=== PATIENT | female | born 1940 | race Caucasian/White ===

== ENCOUNTER → 2018-09-21 | Outpatient (CLI) | payer MEDICARE, BC ==
[2018-09-21 11:23] LABS: Prothrombin Time 49.5 sec (9.0-12.0)
[2018-09-21 11:35] LABS: INR 5.5 (<1.2)
== END | disposition home or self-care (01) ==
LOC: LABWHC1 10:32
PROVIDERS: ATTEND Nurse Practitioner Adult Health
DX: I48.1 Persistent atrial fibrillation (principal)
CPT/HCPCS: 36415; 85610

== ENCOUNTER → 2018-11-21 | Outpatient (CLI) | payer MEDICARE, BC ==
--- NOTE | 2018-11-23 07:04 | MM ---
Reason for exam: screening (asymptomatic). Last mammogram was performed 2 years and 11 months ago. History: Patient is postmenopausal. Family history of breast cancer in aunt at age 40. Took estrogen for 1 year beginning at age 53. Took unspecified hormones for 20 years beginning at age 46. MG 3D Screening Mammo W/Cad Bilateral CC and MLO view(s) were taken. Prior study comparison: December 07, 2015, left breast MG 3d work up w/cad LT. November 27, 2015, bilateral MG screening mammo w CAD. The breast tissue is heterogeneously dense. This may lower the sensitivity of mammography. There is a new group of calcifications in the right upper outer quadrant at the posterior depth. The calcifications in the left breast are similar to 2016. ASSESSMENT: Incomplete: need additional imaging evaluation, BI-RAD 0 RECOMMENDATION: Special view mammogram of the right breast.
== END | disposition home or self-care (01) ==
LOC: RADMAMWWP 13:16
PROVIDERS: ATTEND Obstetrics & Gynecology Obstetrics
DX: Z12.31 Encounter for screening mammogram for malignant neoplasm of breast (principal)
CPT/HCPCS: 77063; 77067

== ENCOUNTER → 2019-01-07 | Outpatient (CLI) | payer MEDICARE, BC ==
--- NOTE | 2019-01-08 08:17 | MM ---
Reason for exam: additional evaluation requested from abnormal screening. Last mammogram was performed 2 months ago. History: Patient is postmenopausal. Family history of breast cancer in aunt at age 40. Took estrogen for 1 year beginning at age 53. Took unspecified hormones for 20 years beginning at age 46. Physical Findings: Nurse did not find any significant physical abnormalities on exam. MG 3D Work Up W/Cad RT CC with magnification, LM with magnification, and LM view(s) were taken of the right breast. Prior study comparison: November 21, 2018, bilateral MG 3d screening mammo w/cad. December 07, 2015, left breast MG 3d work up w/cad LT. The breast tissue is heterogeneously dense. This may lower the sensitivity of mammography. There is a 4mm group of coarse heterogeneous calcifications in the right upper outer quadrant 8cm from nipple. These results were verbally communicated with the patient and result sheet given to the patient on 01/07/19. ASSESSMENT: Suspicious, BI-RAD 4 RECOMMENDATION: Stereotactic core biopsy of the right breast. Called Dr. Hill with mammographic findings and has scheduled an appointment for the patient for 02/07/19 at 9:[address] Greene. Biopsy scheduled for 01/24/19 at 10:20. PRELIMINARY REPORT CALLED AND FAXED TO DR. GREENE ON 01/08/19.
== END | disposition home or self-care (01) ==
LOC: RADMAMWWP 14:31
PROVIDERS: ATTEND Obstetrics & Gynecology Obstetrics
DX: R92.8 Other abnormal and inconclusive findings on diagnostic imaging of breast (principal)
CPT/HCPCS: 77065; G0279; 77061

== ENCOUNTER → 2019-11-13 | Outpatient (CLI) | payer MEDICARE, BC ==
--- NOTE | 2019-11-13 09:35 | MM ---
Reason for exam: follow-up at short interval from prior study. Last mammogram was performed 10 months ago. History: Patient is postmenopausal. Family history of breast cancer in aunt at age 40. Benign MG stereo VAD BX RT of the right breast, January 24, 2019. Took estrogen for 1 year beginning at age 53. Physical Findings: Nurse did not find any significant physical abnormalities on exam. MG 3D Diag Mammo W/Cad SHERWIN Bilateral CC and MLO view(s) were taken. Prior study comparison: January 07, 2019, right breast MG 3d work up w/cad RT. November 21, 2018, bilateral MG 3d screening mammo w/cad. The breast tissue is heterogeneously dense. This may lower the sensitivity of mammography. Previous mammotome biopsy in the right breast. No significant new findings when compared with previous films. These results were verbally communicated with the patient and result sheet given to the patient on 11/13/19. ASSESSMENT: Benign, BI-RAD 2 RECOMMENDATION: Routine screening mammogram of both breasts in 1 year.
== END | disposition home or self-care (01) ==
LOC: RADMAMWWP 07:00
PROVIDERS: ATTEND Surgery
DX: R92.8 Other abnormal and inconclusive findings on diagnostic imaging of breast (principal)
CPT/HCPCS: 77066; G0279; 77062

== ENCOUNTER 2020-10-12 10:42 | Inpatient (IN) | payer MEDICARE, BC ==
[2020-10-12] MEDS ORDERED: SODIUM CHLORIDE 0.9% 1,000 ML IV ONE (11:37)
[2020-10-12] MEDS ORDERED: ONDANSETRON 4 MG/2 ML VIAL IVP STA (11:38)
[2020-10-12 12:06] LABS: Basophils # (A) 0.2 k/uL (0-0.2); Basophils % (A) 2 %; Eosinophils % (A) 0 %; HCT 43.7 % (34.0-46.0); HGB 14.5 gm/dL (11.4-16.0); Lymphocytes # (A) 0.8 k/uL (1.0-4.8); Lymphocytes % (A) 13 %; MCH 29.1 pg (25.0-35.0); MCHC 33.1 g/dL (31.0-37.0); Mean Platelet Volume 9.3; Monocytes # (A) 0.4 k/uL (0-1.0); Monocytes % (A) 6 %; Neutrophils # (A) 4.9 k/uL (1.3-7.7); Neutrophils % (A) 77 %; Platelet Count 249 k/uL (150-450); RBC 4.97 m/uL (3.80-5.40); RDW 13.8 % (11.5-15.5); WBC 6.4 k/uL (3.8-10.6)
--- NOTE | 2020-10-12 12:14 | ED ---
Weakness HPI - General Source: patient, RN notes reviewed Mode of arrival: ambulatory Limitations: no limitations <Ricardo Mcnamara - Last Filed: 10/12/20 14:02> <Farrah Clayton - Last Filed: 10/19/20 20:07> - General Chief complaint: Weakness Stated complaint: weakness, cough Time Seen by Provider: 10/12/20 11:28 - History of Present Illness Initial comments: 79-year-old female presents emergency Department with chief complaint of generalized weakness, shortness of breath, fatigue, body aches. Patient states that the symptoms started 1 week ago. Patient states that she was tested for coronavirus but states she was told it was inconclusive and which she does not know what this means. Patient states that symptoms have greatly worsened last few days. Patient states she's had increasing shortness of breath, body aches. She's had some nausea she did have significant diarrhea the beginning but that has improved. Patient denies any history of lung disease, hypertension or diabetes. (Ricardo Mcnamara) - Related Data Home Medications Medication Instructions Recorded Confirmed Levothyroxine Sodium [Synthroid] 100 mcg PO DAILY 06/12/14 10/12/20 Flecainide [Tambocor] 50 mg PO Q12H 07/12/14 10/12/20 Isosorbide Mononitrate ER [Imdur] 30 mg PO DAILY 01/09/19 10/12/20 Cholecalciferol [Vitamin D3 (25 1,000 unit PO DAILY 10/12/20 10/12/20 Mcg = 1000 Iu)] Magnesium 200 mg PO DAILY 10/12/20 10/12/20 Metoprolol Tartrate [Lopressor] 25 mg PO DAILY 10/12/20 10/12/20 Multivitamins, Thera [Multivitamin 1 tab PO DAILY 10/12/20 10/12/20 (formulary)] Zinc 50 mg PO DAILY 10/12/20 10/12/20 Previous Rx's Medication Instructions Recorded Albuterol Inhaler [Ventolin Hfa 2 puff INHALATION RT-Q6H PRN #1 10/17/20 Inhaler] puff Ascorbic Acid [Vitamin C] 500 mg PO DAILY #30 tab 10/17/20 Losartan [Cozaar] 50 mg PO HS #0 10/17/20 Warfarin [Coumadin] 2.5 mg PO DAILY #0 10/17/20 dexAMETHasone [Hexadrol] 6 mg PO DAILY #15 tab 10/17/20 Allergies Allergy/AdvReac Type Severity Reaction Status Date / Time No Known Allergies Allergy Verified 10/12/20 13:22 Review of Systems ROS Other: All systems not noted in ROS Statement are negative. <Ricrado Mcnamara - Last Filed: 10/12/20 14:02> ROS Other: All systems not noted in ROS Statement are negative. <Farrah Clayton - Last Filed: 10/19/20 20:07> ROS Statement: Those systems with pertinent positive or pertinent negative responses have been documented in the HPI. Past Medical History Past Medical History: Atrial Fibrillation, Hypertension, Thyroid Disorder Additional Past Medical History / Comment(s): Psoriatic arthritis History of Any Multi-Drug Resistant Organisms: None Reported Past Surgical History: Appendectomy, Orthopedic Surgery, Tonsillectomy Additional Past Surgical History / Comment(s): PLATE RIGHT FOOT Past Anesthesia/Blood Transfusion Reactions: No Reported Reaction Past Psychological History: No Psychological Hx Reported Smoking Status: Former smoker Past Alcohol Use History: Occasional Past Drug Use History: None Reported - Past Family History Father Family Medical History: CVA/TIA, Hypertension, Skin Disorder Additional Family Medical History / Comment(s): OF STROKE Mother Additional Family Medical History / Comment(s): FROM MASSIC SRTOKE AFTER SX <Ricardo Mcnamara - Last Filed: 10/12/20 14:02> General Exam Limitations: no limitations General appearance: alert, in no apparent distress Head exam: Present: atraumatic, normocephalic, normal inspection Eye exam: Present: normal appearance, PERRL, EOMI. Absent: scleral icterus, conjunctival injection, periorbital swelling ENT exam: Present: normal exam, normal oropharynx, mucous membranes moist, TM's normal bilaterally Neck exam: Present: normal inspection, full ROM. Absent: tenderness, meningismus, lymphadenopathy Respiratory exam: Present: normal lung sounds bilaterally. Absent: respiratory distress, wheezes, rales, rhonchi, stridor <Ricardo Mcnamara - Last Filed: 10/12/20 14:02> Course Vital Signs 10/12/20 10/12/20 10/12/20 10:59 12:03 12:37 Temperature 99.5 F Pulse Rate 88 72 69 Pulse Rate [ Expediter Service Order ] Respiratory 18 20 18 Rate Blood Pressure 130/77 145/78 Blood Pressure [Right Arm] O2 Sat by Pulse 90 L 95 Oximetry 10/12/20 10/12/20 10/12/20 12:40 13:00 13:45 Temperature Pulse Rate 77 Pulse Rate [ 71 Expediter Service Order ] Respiratory 18 18 Rate Blood Pressure 129/71 Blood Pressure [Right Arm] O2 Sat by Pulse 94 L 89 L Oximetry 10/12/20 10/12/20 10/12/20 14:07 16:32 17:00 Temperature 97.6 F Pulse Rate 77 70 Pulse Rate [ Expediter Service Order ] Respiratory 18 18 18 Rate Blood Pressure 114/74 117/70 122/94 Blood Pressure [Right Arm] O2 Sat by Pulse 85 L 94 L 95 Oximetry 10/12/20 10/12/20 10/12/20 19:00 21:44 22:00 Temperature 97.8 F Pulse Rate 73 65 56 L Pulse Rate [ Expediter Service Order ] Respiratory 18 16 18 Rate Blood Pressure 112/65 124/70 102/56 Blood Pressure [Right Arm] O2 Sat by Pulse 93 L 92 L 95 Oximetry 10/12/20 10/13/20 10/13/20 22:56 06:00 14:00 Temperature 97.6 F Pulse Rate 57 L 70 Pulse Rate [ 53 L Expediter Service Order ] Respiratory 18 18 22 Rate Blood Pressure 97/52 155/86 Blood Pressure 129/85 [Right Arm] O2 Sat by Pulse 93 L 93 L 93 L Oximetry Medical Decision Making - Lab Data Result diagrams: 10/12/20 11:47 10/12/20 11:47 <Ricardo Mcnamara - Last Filed: 10/12/20 14:02> - Lab Data Result diagrams: 10/12/20 11:47 10/12/20 11:47 <Farrah Clayton - Last Filed: 10/19/20 20:07> - Medical Decision Making 79-year-old presented for COVID. Patient's x-ray shows bilateral infiltrates. Patient does have elevated markers. Patient room air oxygen was approximately 90% though after and bleeding she was 83%. Patient became very dyspneic, pa kimmient will be admitted for observation, steroids. (Ricardo Mcnamara) I was available for consultation in the emergency department. The history and physical exam were done by the midlevel provider. I was consulted for this patients care. I reviewed the case with the midlevel provider and based on their presentation of the patient, I agree with the assessment, medical decision making and plan of care as documented. Chart was dictated using [employer] dictation software. Attempts were made to correct any dictation errors however some typographical errors may persist. Patient was seen during a national state of emergency due to the Covid-19 pandemic. (Farrah Clayton) - Lab Data Lab Results 10/12/20 10/12/20 10/12/20 Range/Units 11:47 11:47 11:47 WBC 6.4 (3.8-10.6) k/uL RBC 4.97 (3.80-5.40) m/uL Hgb 14.5 (11.4-16.0) gm/dL Hct 43.7 (34.0-46.0) % MCV 88.0 (80.0-100.0) fL MCH 29.1 (25.0-35.0) pg MCHC 33.1 (31.0-37.0) g/dL RDW 13.8 (11.5-15.5) % Plt Count 249 (150-450) k/uL MPV 9.3 Neutrophils % 77 % Lymphocytes % 13 % Monocytes % 6 % Eosinophils % 0 % Basophils % 2 % Neutrophils # 4.9 (1.3-7.7) k/uL Lymphocytes # 0.8 L (1.0-4.8) k/uL Monocytes # 0.4 (0-1.0) k/uL Eosinophils # 0.0 (0-0.7) k/uL Basophils # 0.2 (0-0.2) k/uL PT 29.7 H (9.0-12.0) sec INR 3.0 H (<1.2) APTT 41.9 H (22.0-30.0) sec D-Dimer 0.50 (<0.60) mg/L FEU Sodium 131 L (137-145) mmol/L Potassium 3.9 (3.5-5.1) mmol/L Chloride 98 (98-107) mmol/L Carbon Dioxide 26 (22-30) mmol/L Anion Gap 7 mmol/L BUN 28 H (7-17) mg/dL Creatinine 0.93 (0.52-1.04) mg/dL Est GFR (CKD-EPI)AfAm 69 (>60 ml/min/1.73 sqM) Est GFR (CKD-EPI)NonAf 60 (>60 ml/min/1.73 sqM) Glucose 124 H (74-99) mg/dL Plasma Lactic Acid Casey (0.7-2.0) mmol/L Calcium 8.4 (8.4-10.2) mg/dL Magnesium 1.9 (1.6-2.3) mg/dL Ferritin 712.6 H (10.0-291.0) ng/mL Total Bilirubin 0.7 (0.2-1.3) mg/dL AST 57 H (14-36) U/L ALT 42 H (4-34) U/L Alkaline Phosphatase 125 (38-126) U/L Lactate Dehydrogenase 1218 H (313-618) U/L C-Reactive Protein 249.7 H (<10.0) mg/L Total Protein 7.3 (6.3-8.2) g/dL Albumin 3.9 (3.5-5.0) g/dL Procalcitonin (0.02-0.09) ng/mL Coronavirus (PCR) (Not Detectd) 10/12/20 10/12/20 10/12/20 Range/Units 11:47 11:47 12:30 WBC (3.8-10.6) k/uL RBC (3.80-5.40) m/uL Hgb (11.4-16.0) gm/dL Hct (34.0-46.0) % MCV (80.0-100.0) fL MCH (25.0-35.0) pg MCHC (31.0-37.0) g/dL RDW (11.5-15.5) % Plt Count (150-450) k/uL MPV Neutrophils % % Lymphocytes % % Monocytes % % Eosinophils % % Basophils % % Neutrophils # (1.3-7.7) k/uL Lymphocytes # (1.0-4.8) k/uL Monocytes # (0-1.0) k/uL Eosinophils # (0-0.7) k/uL Basophils # (0-0.2) k/uL PT (9.0-12.0) sec INR (<1.2) APTT (22.0-30.0) sec D-Dimer (<0.60) mg/L FEU Sodium (137-145) mmol/L Potassium (3.5-5.1) mmol/L Chloride (98-107) mmol/L Carbon Dioxide (22-30) mmol/L Anion Gap mmol/L BUN (7-17) mg/dL Creatinine (0.52-1.04) mg/dL Est GFR (CKD-EPI)AfAm (>60 ml/min/1.73 sqM) Est GFR (CKD-EPI)NonAf (>60 ml/min/1.73 sqM) Glucose (74-99) mg/dL Plasma Lactic Acid Casey 1.4 (0.7-2.0) mmol/L Calcium (8.4-10.2) mg/dL Magnesium (1.6-2.3) mg/dL Ferritin (10.0-291.0) ng/mL Total Bilirubin (0.2-1.3) mg/dL AST (14-36) U/L ALT (4-34) U/L Alkaline Phosphatase (38-126) U/L Lactate Dehydrogenase (313-618) U/L C-Reactive Protein (<10.0) mg/L Total Protein (6.3-8.2) g/dL Albumin (3.5-5.0) g/dL Procalcitonin 0.26 H (0.02-0.09) ng/mL Coronavirus (PCR) Detected A (Not Detectd) Disposition <Ricardo Mcnamara - Last Filed: 10/12/20 14:02> <Farrah Clayton - Last Filed: 10/19/20 20:07> Clinical Impression: COVID-19, Hypoxia Disposition: ADMITTED IP TO THIS [facility] Condition: Stable
--- NOTE | 2020-10-12 12:14 | XR ---
EXAMINATION TYPE: XR chest 2V DATE OF EXAM: 10/12/2020 COMPARISON: Chest x-ray June 12, 2014 HISTORY: Shortness of breath. TECHNIQUE: Frontal and lateral views of the chest are obtained. FINDINGS: The osseous structures are somewhat demineralized. Cardiac silhouette size is stable and mi ldly enlarged with atherosclerotic and slightly ectatic thoracic aorta. There is chronic parenchymal changes bilaterally with new multifocal bilateral opacities greatest in the periphery right upper to midlung and in the left basilar region. No pleural effusion or pneumothorax seen bilaterally. IMPRESSION: Cardiomegaly and chronic parenchymal changes with Bilateral multifocal acute infiltrates, correlate to exclude covid 19 infection in current environmen t.
[2020-10-12 12:21] LABS: Albumin 3.9 g/dL (3.5-5.0); Calcium 8.4 mg/dL (8.4-10.2); Magnesium 1.9 mg/dL (1.6-2.3); Potassium 3.9 mmol/L (3.5-5.1); Total Bilirubin 0.7 mg/dL (0.2-1.3); Total Protein 7.3 g/dL (6.3-8.2)
[2020-10-12 12:28] LABS: D-Dimer 0.5 mg/L FEU (<0.60); Partial Thromboplastin Time 41.9 sec (22.0-30.0); Prothrombin Time 29.7 sec (9.0-12.0)
[2020-10-12 12:38] LABS: C Reactive Protein 249.7 mg/L (<10.0)
[2020-10-12] MEDS ORDERED: DEXAMETHASONE SOD PHOSPHATE 4 MG/ML 1 ML VIAL IV STA (14:03)
--- NOTE | 2020-10-12 15:00 | P.CNPUL ---
History of Present Illness Consult date: 10/12/20 History of present illness: 79-year-old female patient presented to the emergency room because of generalized weakness and fatigue and tiredness and along with some shortness of breath and cough. Her symptoms started approximately a week ago. Physically last Monday. She became symptomatic. She felt weak. During the course of her treatment, she lost her taste and smell. No significant sputum production. She was having some body aches and no documented temperature. She came into the hospital and the patient was found to be hypoxic with pulse ox of 85%. She was placed on oxygen at 3 L of Ringer's saturation above 95%. Currently she is in atrial fibrillation. PT/INR is therapeutic.The d-dimer is at 0.5. INR is at 3. Renal function stable. LFTs are within normal limits. The LDH is 1218, CRP is 49 and lactic acid was at 1.4. The patient was started on Decadron. Review of Systems Constitutional: Reports fatigue Eyes: denies as per HPI, denies blurred vision, denies bulging eye, denies decreased vision, denies diplopia, denies discharge, denies dry eye, denies irritation, denies itching, denies pain, denies photophobia, denies loss of peripheral vision, denies loss of vision, denies tunnel vision/blind spots Ears: deny: decreased hearing, ear discharge, earache, tinnitus Ears, nose, mouth and throat: Denies headache, Denies sore throat Breasts: absent: as per HPI, change in shape, gynecomastia, masses, nipple discharge, pain, skin changes, swelling Cardiovascular: Reports decreased exercise tolerance, Reports dyspnea on exertion Respiratory: Reports cough, Reports dyspnea Gastrointestinal: Reports as per HPI, Reports diarrhea, Reports nausea Genitourinary: Reports as per HPI Menstruation: Reports as per HPI Musculoskeletal: Reports as per HPI Musculoskeletal: absent: ankle pain, ankle stiffness, ankle swelling Integumentary: Reports as per HPI Neurological: Reports as per HPI, Reports change in smell/taste Endocrine: Reports fatigue Hematologic/Lymphatic: Reports as per HPI Allergic/Immunologic: Reports as per HPI Past Medical History Past Medical History: Atrial Fibrillation, Hypertension, Thyroid Disorder Additional Past Medical History / Comment(s): Psoriatic arthritis History of Any Multi-Drug Resistant Organisms: None Reported Past Surgical History: Appendectomy, Orthopedic Surgery, Tonsillectomy Additional Past Surgical History / Comment(s): PLATE RIGHT FOOT Past Anesthesia/Blood Transfusion Reactions: No Reported Reaction Past Psychological History: No Psychological Hx Reported Smoking Status: Former smoker Past Alcohol Use History: Occasional Past Drug Use History: None Reported - Past Family History Father Family Medical History: CVA/TIA, Hypertension, Skin Disorder Additional Family Medical History / Comment(s): OF STROKE Mother Additional Family Medical History / Comment(s): FROM MASSIC SRTOKE AFTER SX Medications and Allergies Home Medications Medication Instructions Recorded Confirmed Type Levothyroxine Sodium [Synthroid] 100 mcg PO DAILY 06/12/14 10/12/20 History Flecainide [Tambocor] 50 mg PO Q12H 07/12/14 10/12/20 History Warfarin [Coumadin] 5 mg PO [id number] 12/15/15 10/12/20 History Isosorbide Mononitrate ER [Imdur] 30 mg PO DAILY 01/09/19 10/12/20 History Cholecalciferol [Vitamin D3 (25 1,000 unit PO DAILY 10/12/20 10/12/20 History Mcg = 1000 Iu)] Losartan [Cozaar] 25 mg PO DAILY 10/12/20 10/12/20 History Magnesium 200 mg PO DAILY 10/12/20 10/12/20 History Metoprolol Tartrate [Lopressor] 25 mg PO DAILY 10/12/20 10/12/20 History Multivitamins, Thera [Multivitamin 1 tab PO DAILY 10/12/20 10/12/20 History (formulary)] Warfarin [Coumadin] 2.5 mg PO STEVENSON 10/12/20 10/12/20 History Zinc 50 mg PO DAILY 10/12/20 10/12/20 History Allergies Allergy/AdvReac Type Severity Reaction Status Date / Time No Known Allergies Allergy Verified 10/12/20 13:22 Physical Exam Vitals: Vital Signs Temp Pulse Pulse Resp BP Pulse Ox 10/12/20 14:07 77 18 114/74 85 L 10/12/20 13:45 89 L 10/12/20 13:00 77 18 129/71 94 L 10/12/20 12:40 71 18 10/12/20 12:37 69 18 145/78 95 10/12/20 12:03 72 20 10/12/20 10:59 99.5 F 88 18 130/77 90 L Intake and Output 10/11/20 10/12/20 10/12/20 22:59 06:59 14:59 Other: Weight 74.843 kg The patient appeared well nourished and normally developed. Vital signs as doc umented. Head exam is unremarkable. No scleral icterus or corneal arcus noted. Neck is without jugular venous distension, thyromegaly, or carotid bruits. Carotid upstrokes are brisk bilaterally. Lungs are back in the lung bases bilaterally. Cardiac exam reveals the PMI to be normally sized and situated. Rhythm isirregular consistent with atrial fibrillation. First and second heart sounds normal. No murmurs, rubs or gallops. Abdominal exam reveals normal bowel sounds, no masses, no organomegaly and no aortic enlargement. Extremities are nonedematous and both femoral and pedal pulses are normal. Results - Laboratory Findings CBC and BMP: 10/12/20 11:47 10/12/20 11:47 PT/INR, D-dimer PT 29.7 sec (9.0-12.0) H 10/12/20 11:47 INR 3.0 (<1.2) H 10/12/20 11:47 D-Dimer 0.50 mg/L FEU (<0.60) 10/12/20 11:47 Abnormal lab findings: Abnormal Labs 10/12/20 10/12/20 10/12/20 11:47 11:47 11:47 Lymphocytes # 0.8 L PT 29.7 H INR 3.0 H APTT 41.9 H Sodium 131 L BUN 28 H Glucose 124 H AST 57 H ALT 42 H Lactate Dehydrogenase 1218 H C-Reactive Protein 249.7 H Coronavirus (PCR) 10/12/20 12:30 Lymphocytes # PT INR APTT Sodium BUN Glucose AST ALT Lactate Dehydrogenase C-Reactive Protein Coronavirus (PCR) Detected A - Diagnostic Findings Chest x-ray: image reviewed Assessment and Plan Plan: 1 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 Generalized weakness in addition to constitutional symptoms of worsening shortness of breath or related to above 4 elevated inflammatory markers with a low d-dimer secondary to above 5 chronic atrial fibrillation and anticoagulation with warfarin with a therapeutic PT/INR plan We'll start the patient on a combination of Remdesivir, Decadron, oxygen therapy, vitamin C, vitamin D, melatonin, zinc and Pepcid. The patient also Warfarin and His PT/INR Will Be Monitored. We Will Admit to the Medical Floor. Monitor inflamatory Markers. Monitor Oxygenation. Will Follow.
[2020-10-12] MEDS ORDERED: REMDESIVIR 200 MG in SODIUM CHLORIDE 0.9% 250 ML IVPB ONE (15:10)
[2020-10-12 18:39] LABS: Ferritin 712.6 ng/mL (10.0-291.0)
[2020-10-12] MEDS: ALBUTEROL HFA INHALER INHALATION PRN (20:19)
[2020-10-12] MEDS: WARFARIN 5 MG TAB PO SCH (21:42)
[2020-10-12] MEDS: FLECAINIDE 50 MG TAB PO SCH (21:42)
[2020-10-13] MEDS: LEVOTHYROXINE 100 MCG TAB PO SCH (06:00)
[2020-10-13] MEDS: ASCORBIC ACID 500 MG TAB PO SCH (08:23)
[2020-10-13] MEDS: dexAMETHasone 2 MG TAB PO SCH (08:23)
[2020-10-13] MEDS: METOPROLOL TARTRATE 25 MG TAB PO SCH (08:23)
[2020-10-13] MEDS: ISOSORBIDE MONONITRATE ER 30 MG TAB.ER.24H PO SCH (08:23)
[2020-10-13] MEDS: LOSARTAN 25 MG TAB PO SCH (08:23)
[2020-10-13] MEDS: ZINC SULFATE 220 MG CAP PO SCH (08:23)
[2020-10-13] MEDS: CHOLECALCIFEROL 400 UNIT TAB PO SCH (08:23)
[2020-10-13] MEDS: CHOLECALCIFEROL 1,000 UNIT TAB PO SCH (08:23)
[2020-10-13] MEDS: MAGNESIUM OXIDE 400 MG TAB PO SCH (08:23)
[2020-10-13] MEDS: FLECAINIDE 50 MG TAB PO SCH ×2 (08:24→22:13)
[2020-10-13 08:50] LABS: Prothrombin Time 28.8 sec (9.0-12.0)
[2020-10-13] MEDS ORDERED: NON FORMULARY DRUG (Zinc [Zinc] 50 MG Tablet) PO SCH (09:00)
[2020-10-13] MEDS: ACETAMINOPHEN TAB 500 MG TAB PO PRN ×2 (10:52→22:11)
[2020-10-13] MEDS: MULTIVITAMINS, THERA 1 EACH TAB PO SCH (10:52)
--- NOTE | 2020-10-13 15:47 | P.PN ---
Subjective Progress Note Date: 10/13/20 Principal diagnosis: Nausea, shortness of breath, cough, weakness, COVID 19 79-year-old female patient presented to the emergency room because of generalized weakness and fatigue and tiredness and along with some shortness of breath and cough. Her symptoms started approximately a week ago. Physically last Monday. She became symptomatic. She felt weak. During the course of her treatment, she lost her taste and smell. No significant sputum production. She was having some body aches and no documented temperature. She came into the hospital and the patient was found to be hypoxic with pulse ox of 85%. She was placed on oxygen at 3 L of Ringer's saturation above 95%. Currently she is in atrial fibrillation. PT/INR is therapeutic.The d-dimer is at 0.5. INR is at 3. Renal function stable. LFTs are within normal limits. The LDH is 1218, CRP is 49 and lactic acid was at 1.4. The patient was started on Decadron. On 2019 patient seen in follow-up in the emergency department, patient still awaiting a bed to become available on medical surgical floor, over last 24 hours her vitals have been stable, she denies any worsening dyspnea, still has the dry cough, no chest discomfort, she is on 3 L of oxygen pulse ox is 93%, minimal crackles at bilateral bases, no rhonchi, no wheezing, no fever or chills, patient was started on Remdesivir treatment yesterday, today is her day 2 of treatment, she continues on oral Decadron, and she is on Coumadin for an ticoagulation, today's INR is 3.0, her d-dimer was low at 0.50, pro-calcitonin was relatively low as 0.26, no new labs, or chest x-rays, we'll obtain follow-up chest x-ray tomorrow. Objective - Vital Signs Vital signs: Vital Signs Temp 97.6 F 10/13/20 14:00 Pulse 53 L 10/13/20 14:00 Resp 22 10/13/20 14:00 BP 129/85 10/13/20 14:00 Pulse Ox 93 L 10/13/20 14:00 Intake & Output 10/12/20 10/13/20 10/13/20 18:59 06:59 18:59 Weight 74.843 kg 74.843 kg - Exam GENERAL EXAM: Alert, very pleasant, 79-year-old white female, 2 L of oxygen pulse ox of 93%, comfortable in no apparent distress. HEAD: Normocephalic/atraumatic. EYES: Normal reaction of pupils, equal size. Conjunctiva pink, sclera white. NOSE: Clear with pink turbinates. THROAT: No erythema or exudates. NECK: No masses, no JVD, no thyroid enlargement, no adenopathy. CHEST: No chest wall deformity. Symmetrical expansion. LUNGS: Equal air entry with basilar crackles but no wheeze, rhonchi or dullness. CVS: Regular rate and rhythm, normal S1 and S2, no gallops, no murmurs, no rubs ABDOMEN: Soft, nontender. No hepatosplenomegaly, normal bowel sounds, no guarding or rigidity. EXTREMITIES: No clubbing, no edema, no cyanosis, 2+ pulses and upper and lower extremities. MUSCULOSKELETAL: Muscle strength and tone normal. SPINE: No scoliosis or deformity SKIN: No rashes CENTRAL NERVOUS SYSTEM: Alert and oriented -3. No focal deficits, tone is normal in all 4 extremities. PSYCHIATRIC: Alert and oriented -3. Appropriate affect. Intact judgment and insight. - Labs CBC & Chem 7: 10/12/20 11:47 10/12/20 11:47 Labs: Abnormal Lab Results - Last 24 Hours (Table) 10/12/20 10/12/20 10/13/20 Range/Units 11:47 11:47 07:30 PT 28.8 H (9.0-12.0) sec INR 3.0 H (<1.2) Ferritin 712.6 H (10.0-291.0) ng/mL Procalcitonin 0.26 H (0.02-0.09) ng/mL Assessment and Plan Plan: Assessment: 1 acute bilateral COVID 19 virus malignancy related pneumonia, on Remdesivir on 10/12/2020 2 acute hypoxic respiratory failure secondary to above currently on 3 L of ox ygen by nasal cannula 3. Generalized weakness in addition to constitutional symptoms of worsening shortness of breath or related to above 4 elevated inflammatory markers with a low d-dimer secondary to above 5 chronic atrial fibrillation and anticoagulation with warfarin with a therapeutic PT/INR Plan: Continue Remdesivir today is day 2 of treatment, continue oxygen therapy, continue vitamins and supplements, continue Decadron, patient denies any worsening symptoms, coughing is improving, vital signs have been stable, follow- up inflammatory markers tomorrow I performed a history & physical examination of the patient and discussed their management with my nurse practitioner, Luisa Gamez. I reviewed the nurse practitioner's note and agree with the documented findings and plan of care. Lung sounds are positive for diminished breath sounds. The findings and the impression was discussed with the patient. I attest to the documentation by the nurse practitioner. Time with Patient: Less than 30
[2020-10-13] MEDS: REMDESIVIR 100 MG in SODIUM CHLORIDE 0.9% 250 ML IVPB SCH (16:41)
[2020-10-13] MEDS: WARFARIN 5 MG TAB PO SCH (17:50)
[2020-10-13] MEDS: ALBUTEROL HFA INHALER INHALATION PRN (20:03)
--- NOTE | 2020-10-13 21:47 | P.HPIM ---
History of Present Illness H&P Date: 10/13/20 Chief Complaint: Short of breath History of presenting complaint: This is a pleasant 79 year patient of . Chronic stable medical conditions include atrial fibrillation, hypertension, hypothyroid, psoriatic arthritis. About a [facility] was patient started having respiratory symptoms including shortness of breath cough. Bodyaches for by nausea and diarrhea some chills feeling warm. Decreased appetite. She lost her taste and smell. Along the course she did get tested for COVID not sure about the results. She did test positive for colon. Feeling a bit better since coming in. Review of systems: GEN.: Tired fever chills decreased appetite EYES: None HEENT: None NECK: None RESPIRATORY: As above CARDIOVASCULAR: None GASTROINTESTINAL: [Diarrhea GENITOURINARY: None MUSCULOSKELETAL: Aches and pains LYMPHATICS: None HEMATOLOGICAL: None PSYCHIATRY: None NEUROLOGICAL: None Past medical history to include: Atrial fibrillation, hypertension, hypothyroid, psoriatic arthritis Social history: Lives alone. No smoking. Alcohol occasionally. Physical examination: VITAL SIGNS: 99.5, 88, 18, 130/77, 90% on room air-upon presentation GENERAL: BMI 25.1, declining in bed, not in distress. EYES: Pupils equal. Conjunctiva normal. HEENT: External appearance of nose and ears normal, oral cavity grossly normal. NECK: JVD not raised; masses not palpable. HEART: First and second heart sounds are normal; no edema. LUNGS: Respiratory rate increased, some basal fine coarse crackles. ABDOMEN: Soft, nontender, liver spleen not palpable, no masses palpable. PSYCH: Alert and oriented x3; mood and affect normal MUSCULAR skeletal: Evidence of OA. NEUROLOGICAL: Cranial nerves grossly intact; no facial asymmetry, power and sensation grossly intact. LYMPHATICS: No lymph nodes palpable in the axilla and neck INVESTIGATIONS, reviewed in the clinical context: White count 6.4 hemoglobin 14.5 platelets 249 INR 3 potassium 3.9 creatinine 0.93 Potassium 3.9 creatinine 0.93 Ferritin 712 CRP 249.7 protocol calcitonin 0.26 Coronavirus PCF-detected EKG tracing personally record by me-sinus rhythm nonspecific T-wave changes Chest x-ray film personally reviewed by me-scattered bilateral infiltrates Assessment: -Acute bilateral COVID 19 pneumonia with symptoms starting about a week ago -Relative hypoxia secondary to above -Paroxysmal atrial fibrillation currently in sinus rhythm chronically on Coumadin -Coumadin monitoring -Essential hypertension -Hypothyroid -Psoriatic arthritis Plan: Patient's Coumadin is to be continued. Patient be started on Remdesivir. Dexamethasone. Care was discussed with the patient. Questions were answered. Supplements including zinc Y limits E vitamin D have been added. Pulmonary was consulted. Past Medical History Past Medical History: Atrial Fibrillation, Hypertension, Thyroid Disorder Additional Past Medical History / Comment(s): Psoriatic arthritis History of Any Multi-Drug Resistant Organisms: None Reported Past Surgical History: Appendectomy, Orthopedic Surgery, Tonsillectomy Additional Past Surgical History / Comment(s): PLATE RIGHT FOOT Past Anesthesia/Blood Transfusion Reactions: No Reported Reaction Smoking Status: Former smoker - Past Family History Father Family Medical History: CVA/TIA, Hypertension, Skin Disorder Additional Family Medical History / Comment(s): OF STROKE Mother Additional Family Medical History / Comment(s): FROM MASSIC SRTOKE AFTER SX Medications and Allergies Home Medications Medication Instructions Recorded Confirmed Type Levothyroxine Sodium [Synthroid] 100 mcg PO DAILY 06/12/14 10/12/20 History Flecainide [Tambocor] 50 mg PO Q12H 07/12/14 10/12/20 History Warfarin [Coumadin] 5 mg PO [id number] 12/15/15 10/12/20 History Isosorbide Mononitrate ER [Imdur] 30 mg PO DAILY 01/09/19 10/12/20 History Cholecalciferol [Vitamin D3 (25 1,000 unit PO DAILY 10/12/20 10/12/20 History Mcg = 1000 Iu)] Losartan [Cozaar] 25 mg PO DAILY 10/12/20 10/12/20 History Magnesium 200 mg PO DAILY 10/12/20 10/12/20 History Metoprolol Tartrate [Lopressor] 25 mg PO DAILY 10/12/20 10/12/20 History Multivitamins, Thera [Multivitamin 1 tab PO DAILY 10/12/20 10/12/20 History (formulary)] Warfarin [Coumadin] 2.5 mg PO STEVENSON 10/12/20 10/12/20 History Zinc 50 mg PO DAILY 10/12/20 10/12/20 History Allergies Allergy/AdvReac Type Severity Reaction Status Date / Time No Known Allergies Allergy Verified 10/12/20 13:22 Physical Exam Vitals: Vital Signs Temp Pulse Pulse Resp BP Pulse Ox 10/13/20 06:00 70 18 155/86 93 L 10/12/20 22:56 57 L 18 97/52 93 L 10/12/20 22:00 56 L 18 102/56 95 10/12/20 21:44 65 16 124/70 92 L 10/12/20 19:00 97.8 F 73 18 112/65 93 L 10/12/20 17:00 97.6 F 18 122/94 95 10/12/20 16:32 70 18 117/70 94 L 10/12/20 14:07 77 18 114/74 85 L 10/12/20 13:45 89 L 10/12/20 13:00 77 18 129/71 94 L 10/12/20 12:40 71 18 10/12/20 12:37 69 18 145/78 95 10/12/20 12:03 72 20 10/12/20 10:59 99.5 F 88 18 130/77 90 L Intake and Output 10/12/20 10/13/20 10/13/20 22:59 06:59 14:59 Other: Weight 74.843 kg Results CBC & Chem 7: 10/12/20 11:47 10/12/20 11:47 Labs: Abnormal Lab Results - Last 24 Hours (Table) 10/12/20 10/12/20 10/12/20 Range/Units 11:47 11:47 11:47 Lymphocytes # 0.8 L (1.0-4.8) k/uL PT 29.7 H (9.0-12.0) sec INR 3.0 H (<1.2) APTT 41.9 H (22.0-30.0) sec Sodium 131 L (137-145) mmol/L BUN 28 H (7-17) mg/dL Glucose 124 H (74-99) mg/dL Ferritin 712.6 H (10.0-291.0) ng/mL AST 57 H (14-36) U/L ALT 42 H (4-34) U/L Lactate Dehydrogenase 1218 H (313-618) U/L C-Reactive Protein 249.7 H (<10.0) mg/L Procalcitonin (0.02-0.09) ng/mL Coronavirus (PCR) (Not Detectd) 10/12/20 10/12/20 10/13/20 Range/Units 11:47 12:30 07:30 Lymphocytes # (1.0-4.8) k/uL PT 28.8 H (9.0-12.0) sec INR 3.0 H (<1.2) APTT (22.0-30.0) sec Sodium (137-145) mmol/L BUN (7-17) mg/dL Glucose (74-99) mg/dL Ferritin (10.0-291.0) ng/mL AST (14-36) U/L ALT (4-34) U/L Lactate Dehydrogenase (313-618) U/L C-Reactive Protein (<10.0) mg/L Procalcitonin 0.26 H (0.02-0.09) ng/mL Coronavirus (PCR) Detected A (Not Detectd)
[2020-10-14] MEDS: LEVOTHYROXINE 100 MCG TAB PO SCH (05:51)
[2020-10-14 07:48] LABS: D-Dimer 0.31 mg/L FEU (<0.60)
[2020-10-14 07:57] LABS: Prothrombin Time 58.2 sec (9.0-12.0)
[2020-10-14 08:21] LABS: INR 5.8 (<1.2)
[2020-10-14] MEDS: CHOLECALCIFEROL 400 UNIT TAB PO SCH (08:58)
[2020-10-14] MEDS: dexAMETHasone 2 MG TAB PO SCH (08:59)
[2020-10-14] MEDS: LOSARTAN 25 MG TAB PO SCH (08:59)
[2020-10-14] MEDS: ISOSORBIDE MONONITRATE ER 30 MG TAB.ER.24H PO SCH (08:59)
[2020-10-14] MEDS: ZINC SULFATE 220 MG CAP PO SCH (08:59)
[2020-10-14] MEDS: MAGNESIUM OXIDE 400 MG TAB PO SCH (08:59)
[2020-10-14] MEDS: MULTIVITAMINS, THERA 1 EACH TAB PO SCH (08:59)
[2020-10-14] MEDS: FLECAINIDE 50 MG TAB PO SCH ×2 (08:59→20:20)
[2020-10-14] MEDS: METOPROLOL TARTRATE 25 MG TAB PO SCH (09:00)
[2020-10-14] MEDS: ASCORBIC ACID 500 MG TAB PO SCH (09:00)
[2020-10-14] MEDS: CHOLECALCIFEROL 1,000 UNIT TAB PO SCH (09:00)
[2020-10-14] MEDS: ACETAMINOPHEN TAB 500 MG TAB PO PRN ×2 (09:09→19:46)
--- NOTE | 2020-10-14 09:57 | P.PN ---
Subjective Progress Note Date: 10/14/20 79-year-old female patient presented to the emergency room because of generalized weakness and fatigue and tiredness and along with some shortness of breath and cough. Her symptoms started approximately a week ago. Physically last Monday. She became symptomatic. She felt weak. During the course of her treatment, she lost her taste and smell. No significant sputum production. She was having some body aches and no documented temperature. She came into the hospital and the patient was found to be hypoxic with pulse ox of 85%. She was placed on oxygen at 3 L of Ringer's saturation above 95%. Currently she is in atrial fibrillation. PT/INR is therapeutic.The d-dimer is at 0.5. INR is at 3. Renal function stable. LFTs are within normal limits. The LDH is 1218, CRP is 49 and lactic acid was at 1.4. The patient was started on Decadron. On patient seen in follow-up in the emergency department, patient still awaiting a bed to become available on medical surgical floor, over last 24 hours her vitals have been stable, she denies any worsening dyspnea, still has the dry cough, no chest discomfort, she is on 3 L of oxygen pulse ox is 93%, minimal crackles at bilateral bases, no rhonchi, no wheezing, no fever or chills, patient was started on Remdesivir treatment yesterday, today is her day 2 of treatment, she continues on oral Decadron, and she is on Coumadin for anticoagulation, today's INR is 3.0, her d-dimer was low at 0.50, pro-calcitonin was relatively low as 0.26, no new labs, or chest x-rays, we'll obtain follow-up chest x-ray tomorrow. Evaluation of 10/14/2020, the patient is feeling slightly better. The fatigue has been improving. No significant cough or sputum production. She is on 3 L of oxygen by nasal cannula. No nausea. No vomiting. No diarrhea. No chest pain. No altered mentation. Her Coumadin level is slightly elevated and the patient' s Coumadin will placed on hold. Her cardiac rhythm is atrial fibrillation and she takes anticoagulation for chronic A. fib. She did have a bout of nosebleed earlier today which recovered. Objective - Vital Signs Vital signs: Vital Signs Temp 98.0 F 10/14/20 05:45 Pulse 78 10/13/20 22:00 Resp 18 10/14/20 05:45 BP 164/80 10/14/20 05:45 Pulse Ox 95 10/14/20 05:45 Intake & Output 10/13/20 10/14/20 10/14/20 18:59 06:59 18:59 Weight 74.843 kg Other: Voiding Method Toilet # Voids 1 1 - Exam GENERAL EXAM: Alert, very pleasant, 79-year-old white female, 2 L of oxygen pulse ox of 93%, comfortable in no apparent distress. HEAD: Normocephalic/atraumatic. EYES: Normal reaction of pupils, equal size. Conjunctiva pink, sclera white. NOSE: Clear with pink turbinates. THROAT: No erythema or exudates. NECK: No masses, no JVD, no thyroid enlargement, no adenopathy. CHEST: No chest wall deformity. Symmetrical expansion. LUNGS: Equal air entry with basilar crackles but no wheeze, rhonchi or dullness. CVS: Regular rate and rhythm, normal S1 and S2, no gallops, no murmurs, no rubs ABDOMEN: Soft, nontender. No hepatosplenomegaly, normal bowel sounds, no guarding or rigidity. EXTREMITIES: No clubbing, no edema, no cyanosis, 2+ pulses and upper and lower extremities. MUSCULOSKELETAL: Muscle strength and tone normal. SPINE: No scoliosis or deformity SKIN: No rashes CENTRAL NERVOUS SYSTEM: Alert and oriented -3. No focal deficits, tone is normal in all 4 extremities. PSYCHIATRIC: Alert and oriented -3. Appropriate affect. 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 Generalized weakness in addition to constitutional symptoms of worsening shortness of breath or related to above 4 elevated inflammatory markers with a low d-dimer secondary to above 5 chronic atrial fibrillation and anticoagulation with warfarin with a therapeutic PT/INR plan We'll start the patient on a combination of Remdesivir, Decadron, oxygen therapy, vitamin C, vitamin D, melatonin, zinc and Pepcid. The patient also Warfarin and His PT/INR Will Be Monitored. Patient is slightly supratherapeutic and her INR. Coumadin will be kept on hold. Repeat chest x- ray was done tomorrow. Repeat PT/INR in the morning. Completed the course of treatment for coronary virus Covid 19 and the patient's oxygenation is stable and she'll be dropped down to 2 L. We'll continue to follow.
[2020-10-14 12:25] LABS: C Reactive Protein 10.7 mg/dL (0.0-0.8); Ferritin 767.7 ng/mL (10.0-291.0)
[2020-10-14] MEDS: REMDESIVIR 100 MG in SODIUM CHLORIDE 0.9% 250 ML IVPB SCH (15:21)
--- NOTE | 2020-10-14 23:45 | P.PN ---
Progress Note - Text Progress Note Date: 10/14/20 Chief Complaint: Short of breath History of presenting complaint: This is a pleasant 79 year patient of . Chronic stable medical conditions include atrial fibrillation, hypertension, hypothyroid, psoriatic arthritis. About a [facility] was patient started having respiratory symptoms including shortness of breath cough. Bodyaches for by nausea and diarrhea some chills feeling warm. Decreased appetite. She lost her taste and smell. Along the course she did get tested for COVID not sure about the results. She did test positive for COVID here Feeling a bit better since coming in. Admitted with bilateral COVID pneumonia, acute hypoxic respiratory failure. Started on dexamethasone, Remdesivir, Today-feeling a bit better. Appetite improving. Some shortness of breath. Cough present. Review of systems: Was done for constitutional, cardiovascular, GI, pulmonary. relevant finding as above Active Medications Acetaminophen (Acetaminophen Tab 500 Mg Tab) 1,000 mg PO Q6HR PRN PRN Reason: Fever>101 Last Admin: 10/14/20 19:46 Dose: 1,000 mg Documented by: Albuterol Sulfate (Albuterol Hfa Inhaler) 2 puff INHALATION RT-Q6H PRN PRN Reason: Shortness Of Breath Or Wheezing Last Admin: 10/13/20 20:03 Dose: 2 puff Documented by: Ascorbic Acid (Ascorbic Acid 500 Mg Tab) 1,000 mg PO DAILY [facility] Last Admin: 10/14/20 09:00 Dose: 1,000 mg Documented by: Cholecalciferol (Cholecalciferol 400 Unit Tab) 400 unit PO DAILY [facility] Last Admin: 10/14/20 08:58 Dose: 400 unit Documented by: Cholecalciferol (Cholecalciferol 1,000 Unit Tab) 1,000 unit PO DAILY [facility] Last Admin: 10/14/20 09:00 Dose: 1,000 unit Documented by: Dexamethasone (Dexamethasone 2 Mg Tab) 6 mg PO DAILY [facility] Stop: 10/23/20 09:01 Last Admin: 10/14/20 08:59 Dose: 6 mg Documented by: Flecainide Acetate (Flecainide 50 Mg Tab) 50 mg PO Q12HR [facility] Last Admin: 10/14/20 20:20 Dose: 50 mg Documented by: Remdesivir 100 mg/ Sodium (Chloride) 250 mls @ 250 mls/hr IVPB DAILY@1600 [facility] Stop: 10/16/20 16:59 Last Admin: 10/14/20 15:21 Dose: 250 mls/hr Documented by: Isosorbide Mononitrate (Isosorbide Mononitrate Er 30 Mg Tab.Er.24h) 30 mg PO DAILY [facility] Last Admin: 10/14/20 08:59 Dose: 30 mg Documented by: Levothyroxine Sodium (Levothyroxine 100 Mcg Tab) 100 mcg PO DAILY@0600 [facility] Last Admin: 10/14/20 05:51 Dose: 100 mcg Documented by: Losartan Potassium (Losartan 50 Mg Tab) 50 mg PO DAILY [facility] Magnesium Oxide (Magnesium Oxide 400 Mg Tab) 400 mg PO DAILY [facility] Last Admin: 10/14/20 08:59 Dose: 400 mg Documented by: Metoprolol Tartrate (Metoprolol Tartrate 25 Mg Tab) 25 mg PO DAILY [facility] Last Admin: 10/14/20 09:00 Dose: 25 mg Documented by: Multivitamins (Multivitamins, Thera 1 Each Tab) 1 each PO DAILY [facility] Last Admin: 10/14/20 08:59 Dose: 1 each Documented by: Zinc Sulfate (Zinc Sulfate 220 Mg Cap) 220 mg PO DAILY [facility] Last Admin: 10/14/20 08:59 Dose: 220 mg Documented by: Physical examination: VITAL SIGNS: 97.4, 70, 18, 159 with 65, 92% on 2 L GENERAL: BMI 25.1, laying in bed, awake EYES: Pupils equal. Conjunctiva normal. ABDOMEN: Soft, nontender, liver spleen not palpable, no masses palpable. PSYCH: Alert and oriented x3; mood and affect normal Rest of the exam as per nursing and pulmonary INVESTIGATIONS, reviewed in the clinical context: October 14: INR 5.8 d-dimer 0.31 CRP 10.7 White count 6.4 hemoglobin 14.5 platelets 249 INR 3 potassium 3.9 creatinine 0.93 Potassium 3.9 creatinine 0.93 Ferritin 712 CRP 249.7 protocol calcitonin 0.26 Coronavirus PCF-detected EKG tracing personally record by me-sinus rhythm nonspecific T-wave changes Chest x-ray film personally reviewed by me-scattered bilateral infiltrates Assessment: -Acute bilateral COVID 19 pneumonia with symptoms starting about a week ago -Relative hypoxia secondary to above -Paroxysmal atrial fibrillation currently in sinus rhythm chronically on Coumadin -Coumadin monitoring -Essential hypertension -Hypothyroid -Psoriatic arthritis Plan: Continue with Remdesivir, dexamethasone, pharmacies upon retrieving the INR. Other medications to continue. Encouraged to ambulate and use incentive spirometer.
[2020-10-15] MEDS: LEVOTHYROXINE 100 MCG TAB PO SCH (05:43)
--- NOTE | 2020-10-15 07:31 | XR ---
EXAMINATION TYPE: XR chest 1V DATE OF EXAM: 10/15/2020 CLINICAL HISTORY: Difficulty breathing progress study. Positive covid 19 TECHNIQUE: Single AP portable upright view of the chest is obtained. COMPARISON: Chest x-ray from 3 days earlier FINDINGS: Degenerative change bilateral glenohumeral joints. Cardiac silhouette size is stable and mi ldly enlarged with atherosclerotic and slightly ectatic thoracic aorta redemonstrated. There is chron ic parenchymal changes bilaterally with worsening opacities bilaterally greatest in the periphery. No new pleural effusion or pneumothorax is seen . IMPRESSION: Cardiomegaly and chronic parenchymal changes with Worsening bilateral multifocal acute infiltrates, consistent with covid 19 infection spread or progre ssion.
[2020-10-15] MEDS: ALBUTEROL HFA INHALER INHALATION PRN ×2 (08:10→16:15)
[2020-10-15] MEDS: ACETAMINOPHEN TAB 500 MG TAB PO PRN ×2 (09:04→17:36)
[2020-10-15] MEDS ORDERED: ONDANSETRON 4 MG/2 ML VIAL IVP PRN (09:51)
[2020-10-15] MEDS ORDERED: PHYTONADIONE ORAL 5 MG/5 ML ORAL.SYRG PO STA (10:20)
[2020-10-15 10:44] LABS: INR 7.47 (0.90-1.11); Prothrombin Time 69.5 sec (9.9-11.9)
[2020-10-15] MEDS: ISOSORBIDE MONONITRATE ER 30 MG TAB.ER.24H PO SCH (10:45)
[2020-10-15] MEDS: METOPROLOL TARTRATE 25 MG TAB PO SCH (10:46)
[2020-10-15] MEDS: LOSARTAN 50 MG TAB PO SCH (10:46)
[2020-10-15] MEDS: FLECAINIDE 50 MG TAB PO SCH ×2 (10:46→21:10)
[2020-10-15] MEDS: dexAMETHasone 2 MG TAB PO SCH (10:48)
[2020-10-15] MEDS: ASCORBIC ACID 500 MG TAB PO SCH (10:53)
[2020-10-15] MEDS: ZINC SULFATE 220 MG CAP PO SCH (10:53)
[2020-10-15] MEDS: CHOLECALCIFEROL 400 UNIT TAB PO SCH (10:53)
[2020-10-15] MEDS: MULTIVITAMINS, THERA 1 EACH TAB PO SCH (10:53)
[2020-10-15] MEDS: MAGNESIUM OXIDE 400 MG TAB PO SCH (10:53)
[2020-10-15] MEDS: CHOLECALCIFEROL 1,000 UNIT TAB PO SCH (10:53)
--- NOTE | 2020-10-15 11:00 | P.PN ---
Subjective Progress Note Date: 10/15/20 79-year-old female patient presented to the emergency room because of generalized weakness and fatigue and tiredness and along with some shortness of breath and cough. Her symptoms started approximately a week ago. Physically last Monday. She became symptomatic. She felt weak. During the course of her treatment, she lost her taste and smell. No significant sputum production. She was having some body aches and no documented temperature. She came into the hospital and the patient was found to be hypoxic with pulse ox of 85%. She was placed on oxygen at 3 L of Ringer's saturation above 95%. Currently she is in atrial fibrillation. PT/INR is therapeutic.The d-dimer is at 0.5. INR is at 3. Renal function stable. LFTs are within normal limits. The LDH is 1218, CRP is 49 and lactic acid was at 1.4. The patient was started on Decadron. On patient seen in follow-up in the emergency department, patient still awaiting a bed to become available on medical surgical floor, over last 24 hours her vitals have been stable, she denies any worsening dyspnea, still has the dry cough, no chest discomfort, she is on 3 L of oxygen pulse ox is 93%, minimal crackles at bilateral bases, no rhonchi, no wheezing, no fever or chills, patient was started on Remdesivir treatment yesterday, today is her day 2 of treatment, she continues on oral Decadron, and she is on Coumadin for anticoagulation, today's INR is 3.0, her d-dimer was low at 0.50, pro-calcitonin was relatively low as 0.26, no new labs, or chest x-rays, we'll obtain follow-up chest x-ray tomorrow. Evaluation of 10/14/2020, the patient is feeling slightly better. The fatigue has been improving. No significant cough or sputum production. She is on 3 L of oxygen by nasal cannula. No nausea. No vomiting. No diarrhea. No chest pain. No altered mentation. Her Coumadin level is slightly elevated and the patient' s Coumadin will placed on hold. Her cardiac rhythm is atrial fibrillation and she takes anticoagulation for chronic A. fib. She did have a bout of nosebleed earlier today which recovered. on 10/15/2020, the patient felt slightly more short of breath. She was also nauseated and she threw up once. She was given Zofran. Her oxygen flow was brought up to 5 L. No diarrhea. No chest pain. No altered mentation. Coumadin level was toxic at 7 and the patient was given 2.5 mg of Coumadin orally. She remains nature fibrillation. No bleeding complications. She remains on a combination of Decadron and Remdesivir Objective - Vital Signs Vital signs: Vital Signs Temp 99.8 F H 10/15/20 10:00 Pulse 83 10/15/20 10:00 Resp 26 H 10/15/20 10:00 BP 152/73 10/15/20 10:00 Pulse Ox 96 10/15/20 10:00 Intake & Output 10/14/20 10/15/20 10/15/20 18:59 06:59 18:59 Intake Total 450 Balance 450 Intake: Intake, IV Titration 250 Amount Remdesivir 100 mg In 250 Sodium Chloride 0.9% 250 ml @ 250 mls/hr IVPB DAILY@1600 [facility] Rx#: [id number] Oral 200 Other: Voiding Method Toilet Toilet Toilet # Voids 2 1 - Exam GENERAL EXAM: Alert, very pleasant, 79-year-old white female, 5 L of oxygen pulse ox of 93%, comfortable in no apparent distress. HEAD: Normocephalic/atraumatic. EYES: Normal reaction of pupils, equal size. Conjunctiva pink, sclera white. NOSE: Clear with pink turbinates. THROAT: No erythema or exudates. NECK: No masses, no JVD, no thyroid enlargement, no adenopathy. CHEST: No chest wall deformity. Symmetrical expansion. LUNGS: Equal air entry with basilar crackles but no wheeze, rhonchi or dullness. CVS: Regular rate and rhythm, normal S1 and S2, no gallops, no murmurs, no rubs ABDOMEN: Soft, nontender. No hepatosplenomegaly, normal bowel sounds, no guarding or rigidity. EXTREMITIES: No clubbing, no edema, no cyanosis, 2+ pulses and upper and lower extremities. MUSCULOSKELETAL: Muscle strength and tone normal. SPINE: No scoliosis or deformity SKIN: No rashes CENTRAL NERVOUS SYSTEM: Alert and oriented -3. No focal deficits, tone is nor mal in all 4 extremities. PSYCHIATRIC: Alert and oriented -3. Appropriate affect. 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 2 acute hypoxic respiratory failure secondary to above currently on 5 L of oxygen by nasal cannula 3. Generalized weakness in addition to constitutional symptoms of worsening shortness of breath or related to above 4 elevated inflammatory markers with a low d-dimer secondary to above 5 chronic atrial fibrillation and anticoagulation with warfarin with a suprat herapeutic PT/INR, the patient will be receiving vitamin K. plan We'll start the patient on a combination of Remdesivir, Decadron, oxygen therapy, vitamin C, vitamin D, melatonin, zinc and Pepcid. The patient also Warfarin and His PT/INR Will Be Monitored. Patient is slightly supratherapeutic and her INR. Coumadin will be kept on hold. the patient will be given a total of 2.5 mg of vitamin K and the PT/INR will be rechecked. We'll give her Zofran for nausea. We'll gradually wean down the FiO2 to maintain a saturation above 90%. She has minimal crackles in her chest x-ray shows some li mited interstitial infiltrates bilaterally which has not changed compared to chest x-ray from 10/12/2020 and the findings are stable.
[2020-10-15] MEDS: REMDESIVIR 100 MG in SODIUM CHLORIDE 0.9% 250 ML IVPB SCH (15:42)
[2020-10-15 16:50] LABS: INR 5.7 (<1.2)
--- NOTE | 2020-10-15 22:04 | P.PN ---
Progress Note - Text Progress Note Date: 10/15/20 Chief Complaint: Short of breath History of presenting complaint: This is a pleasant 79 year patient of . Chronic stable medical conditions include atrial fibrillation, hypertension, hypothyroid, psoriatic arthritis. About a [facility] was patient started having respiratory symptoms including shortness of breath cough. Bodyaches for by nausea and diarrhea some chills feeling warm. Decreased appetite. She lost her taste and smell. Along the course she did get tested for COVID not sure about the results. She did test positive for COVID here Feeling a bit better since coming in. Admitted with bilateral COVID pneumonia, acute hypoxic respiratory failure. Started on dexamethasone, Remdesivir, Today-feels better. Decreased appetite. Shortness of breath. Review of systems: Was done for constitutional, cardiovascular, GI, pulmonary. relevant finding as above Active Medications Acetaminophen (Acetaminophen Tab 500 Mg Tab) 1,000 mg PO Q6HR PRN PRN Reason: Fever>101 Last Admin: 10/15/20 17:36 Dose: 1,000 mg Documented by: Albuterol Sulfate (Albuterol Hfa Inhaler) 2 puff INHALATION RT-Q6H PRN PRN Reason: Shortness Of Breath Or Wheezing Last Admin: 10/15/20 16:15 Dose: 2 puff Documented by: Ascorbic Acid (Ascorbic Acid 500 Mg Tab) 1,000 mg PO DAILY [facility] Last Admin: 10/15/20 10:53 Dose: 1,000 mg Documented by: Cholecalciferol (Cholecalciferol 400 Unit Tab) 400 unit PO DAILY [facility] Last Admin: 10/15/20 10:53 Dose: 400 unit Documented by: Cholecalciferol (Cholecalciferol 1,000 Unit Tab) 1,000 unit PO DAILY [facility] Last Admin: 10/15/20 10:53 Dose: 1,000 unit Documented by: Dexamethasone (Dexamethasone 2 Mg Tab) 6 mg PO DAILY [facility] Stop: 10/23/20 09:01 Last Admin: 10/15/20 10:48 Dose: 6 mg Documented by: Flecainide Acetate (Flecainide 50 Mg Tab) 50 mg PO Q12HR [facility] Last Admin: 10/15/20 21:10 Dose: 50 mg Documented by: Remdesivir 100 mg/ Sodium (Chloride) 250 mls @ 250 mls/hr IVPB DAILY@1600 [facility] Stop: 10/16/20 16:59 Last Admin: 10/15/20 15:42 Dose: 250 mls/hr Documented by: Isosorbide Mononitrate (Isosorbide Mononitrate Er 30 Mg Tab.Er.24h) 30 mg PO DAILY [facility] Last Admin: 10/15/20 10:45 Dose: 30 mg Documented by: Levothyroxine Sodium (Levothyroxine 100 Mcg Tab) 100 mcg PO DAILY@0600 [facility] Last Admin: 10/15/20 05:43 Dose: 100 mcg Documented by: Losartan Potassium (Losartan 50 Mg Tab) 50 mg PO DAILY [facility] Last Admin: 10/15/20 10:46 Dose: 50 mg Documented by: Magnesium Oxide (Magnesium Oxide 400 Mg Tab) 400 mg PO DAILY [facility] Last Admin: 10/15/20 10:53 Dose: 400 mg Documented by: Metoprolol Tartrate (Metoprolol Tartrate 25 Mg Tab) 25 mg PO DAILY [facility] Last Admin: 10/15/20 10:46 Dose: 25 mg Documented by: Multivitamins (Multivitamins, Thera 1 Each Tab) 1 each PO DAILY [facility] Last Admin: 10/15/20 10:53 Dose: 1 each Documented by: Ondansetron HCl (Ondansetron 4 Mg/2 Ml Vial) 4 mg IVP Q6HR PRN PRN Reason: Nausea And Vomiting Zinc Sulfate (Zinc Sulfate 220 Mg Cap) 220 mg PO DAILY [facility] Last Admin: 10/15/20 10:53 Dose: 220 mg Documented by: Physical examination: VITAL SIGNS: 97.9, 66, 22, 145/84, 95% on 4 L GENERAL: Sitting up, a bit tired PSYCH: Alert and oriented x3; mood and affect normal Rest of the exam as per nursing and pulmonary INVESTIGATIONS, reviewed in the clinical context: October 15: INR 7.47 October 14: INR 5.8 d-dimer 0.31 CRP 10.7 White count 6.4 hemoglobin 14.5 platelets 249 INR 3 potassium 3.9 creatinine 0.93 Potassium 3.9 creatinine 0.93 Ferritin 712 CRP 249.7 protocol calcitonin 0.26 Coronavirus PCF-detected EKG tracing personally record by me-sinus rhythm nonspecific T-wave changes Chest x-ray film personally reviewed by me-scattered bilateral infiltrates Assessment: -Acute bilateral COVID 19 pneumonia with symptoms starting about a week ago -Relative hypoxia secondary to above-on 4 L nasal cannula -Paroxysmal atrial fibrillation currently in sinus rhythm chronically on Coumadin -Coumadin monitoring with toxicity. No bleeding. -Essential hypertension -Hypothyroid -Psoriatic arthritis Plan: Continue with Remdesivir, dexamethasone, 2.5 mg of vitamin K by mouth given. Repeat INR in the morning.
[2020-10-16] MEDS: LEVOTHYROXINE 100 MCG TAB PO SCH (05:57)
[2020-10-16] MEDS: ALBUTEROL HFA INHALER INHALATION PRN (07:49)
[2020-10-16 08:32] LABS: D-Dimer 0.34 mg/L FEU (<0.60); Prothrombin Time 29.3 sec (9.0-12.0)
[2020-10-16] MEDS: LOSARTAN 50 MG TAB PO SCH (08:35)
[2020-10-16] MEDS: CHOLECALCIFEROL 1,000 UNIT TAB PO SCH (08:35)
[2020-10-16] MEDS: dexAMETHasone 2 MG TAB PO SCH (08:35)
[2020-10-16] MEDS: ISOSORBIDE MONONITRATE ER 30 MG TAB.ER.24H PO SCH (08:35)
[2020-10-16] MEDS: CHOLECALCIFEROL 400 UNIT TAB PO SCH (08:35)
[2020-10-16] MEDS: ASCORBIC ACID 500 MG TAB PO SCH (08:35)
[2020-10-16] MEDS: FLECAINIDE 50 MG TAB PO SCH ×2 (08:35→22:24)
[2020-10-16] MEDS: MULTIVITAMINS, THERA 1 EACH TAB PO SCH (08:36)
[2020-10-16] MEDS: ZINC SULFATE 220 MG CAP PO SCH (08:36)
[2020-10-16] MEDS: MAGNESIUM OXIDE 400 MG TAB PO SCH (08:36)
[2020-10-16] MEDS: METOPROLOL TARTRATE 25 MG TAB PO SCH (08:36)
[2020-10-16] MEDS: REMDESIVIR 100 MG in SODIUM CHLORIDE 0.9% 250 ML IVPB SCH (17:50)
--- NOTE | 2020-10-16 18:23 | P.PN ---
Subjective Progress Note Date: 10/16/20 79-year-old female patient presented to the emergency room because of generalized weakness and fatigue and tiredness and along with some shortness of breath and cough. Her symptoms started approximately a week ago. Physically last Monday. She became symptomatic. She felt weak. During the course of her treatment, she lost her taste and smell. No significant sputum production. She was having some body aches and no documented temperature. She came into the hospital and the patient was found to be hypoxic with pulse ox of 85%. She was placed on oxygen at 3 L of Ringer's saturation above 95%. Currently she is in atrial fibrillation. PT/INR is therapeutic.The d-dimer is at 0.5. INR is at 3. Renal function stable. LFTs are within normal limits. The LDH is 1218, CRP is 49 and lactic acid was at 1.4. The patient was started on Decadron. On patient seen in follow-up in the emergency department, patient still awaiting a bed to become available on medical surgical floor, over last 24 hours her vitals have been stable, she denies any worsening dyspnea, still has the dry cough, no chest discomfort, she is on 3 L of oxygen pulse ox is 93%, minimal crackles at bilateral bases, no rhonchi, no wheezing, no fever or chills, patient was started on Remdesivir treatment yesterday, today is her day 2 of treatment, she continues on oral Decadron, and she is on Coumadin for anticoagulation, today's INR is 3.0, her d-dimer was low at 0.50, pro-calcitonin was relatively low as 0.26, no new labs, or chest x-rays, we'll obtain follow-up chest x-ray tomorrow. Evaluation of 10/14/2020, the patient is feeling slightly better. The fatigue has been improving. No significant cough or sputum production. She is on 3 L of oxygen by nasal cannula. No nausea. No vomiting. No diarrhea. No chest pain. No altered mentation. Her Coumadin level is slightly elevated and the patient' s Coumadin will placed on hold. Her cardiac rhythm is atrial fibrillation and she takes anticoagulation for chronic A. fib. She did have a bout of nosebleed earlier today which recovered. on 10/15/2020, the patient felt slightly more short of breath. She was also nauseated and she threw up once. She was given Zofran. Her oxygen flow was brought up to 5 L. No diarrhea. No chest pain. No altered mentation. Coumadin level was toxic at 7 and the patient was given 2.5 mg of Coumadin orally. She remains nature fibrillation. No bleeding complications. She remains on a combination of Decadron and Remdesivir On 10/16/2020, the patient is feeling well. No specific complaints. She is c ompleting Decadron. She is also completing Remdesivir and the patient is on day #5 of treatment. Her nausea has subsided. She is still having some loose diarrhea. She was given vitamin K regarding her coagulopathy and her INR is down to 3.0. She is still on oxygen and she is down to 3 L about 2 by nasal cannula. No chest pain. No altered mentation. She has chronic atrial fibrillation. In terms of her inflammatory markers, her CRP level still elevated at 10.9. Objective - Vital Signs Vital signs: Vital Signs Temp 98.6 F 10/16/20 17:37 Pulse 70 10/16/20 17:37 Resp 20 10/16/20 17:37 BP 154/78 10/16/20 17:37 Pulse Ox 94 L 10/16/20 18:00 Intake & Output 10/15/20 10/16/20 10/16/20 18:59 06:59 18:59 Intake Total 200 Balance 200 Intake: Oral 200 Other: Voiding Method Toilet Toilet Toilet # Voids 3 2 4 - Exam GENERAL EXAM: Alert, very pleasant, 79-year-old white female, 3 L of oxygen pulse ox of 93%, comfortable in no apparent distress. HEAD: Normocephalic/atraumatic. EYES: Normal reaction of pupils, equal size. Conjunctiva pink, sclera white. NOSE: Clear with pink turbinates. THROAT: No erythema or exudates. NECK: No masses, no JVD, no thyroid enlargement, no adenopathy. CHEST: No chest wall deformity. Symmetrical expansion. LUNGS: Equal air entry with basilar crackles but no wheeze, rhonchi or dullness. CVS: Regular rate and rhythm, normal S1 and S2, no gallops, no murmurs, no rubs ABDOMEN: Soft, nontender. No hepatosplenomegaly, normal bowel sounds, no guarding or rigidity. EXTREMITIES: No clubbing, no edema, no cyanosis, 2+ pulses and upper and lower extremities. MUSCULOSKELETAL: Muscle strength and tone normal. SPINE: No scoliosis or deformity SKIN: No rashes CENTRAL NERVOUS SYSTEM: Alert and oriented -3. No focal deficits, tone is normal in all 4 extremities. PSYCHIATRIC: Alert and oriented -3. Appropriate affect. 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 She is improving and we have been down titrating her FiO2 down. She is completed her treatment with Remdesivir. Noted the patient was having significant GI side symptoms and she was having nausea and diarrhea which seems to have been improving for now. Her respiratory status also improving and she has been down to 3 days of oxygen by nasal cannula for now. 2 acute hypoxic respiratory failure secondary to above currently on 2 L of oxygen by nasal cannula 3 Generalized weakness in addition to constitutional symptoms of worsening shortness of breath or related to above 4 elevated inflammatory markers with a low d-dimer secondary to above 5 chronic atrial fibrillation and anticoagulation with warfarin with a supratherapeutic PT/INR, the patient received vitamin K and INR is down to 3.0. Coumadin still on hold. plan Completed Remdesivir, and the patient will be kept on Decadron, oxygen therapy, vitamin C, vitamin D, melatonin, zinc and Pepcid. The vitamin K was given yesterday the patient's INR is down to 3 and we'll keep the Coumadin on hold. Zofran for nausea we'll continue to follow, her overall condition is better and the patient seems to be improving for now.
--- NOTE | 2020-10-16 22:59 | P.PN ---
Progress Note - Text Progress Note Date: 10/16/20 Chief Complaint: Short of breath History of presenting complaint: This is a pleasant 79 year patient of . Chronic stable medical conditions include atrial fibrillation, hypertension, hypothyroid, psoriatic arthritis. About a [facility] was patient started having respiratory symptoms including shortness of breath cough. Bodyaches for by nausea and diarrhea some chills feeling warm. Decreased appetite. She lost her taste and smell. Along the course she did get tested for COVID not sure about the results. She did test positive for COVID here Feeling a bit better since coming in. Admitted with bilateral COVID pneumonia, acute hypoxic respiratory failure. Started on dexamethasone, Remdesivir, Today-breathing slowly improving. Oral intake variable. A bit short of breath. Has been out of bed.. Review of systems: Was done for constitutional, cardiovascular, GI, pulmonary. relevant finding as above Active Medications Acetaminophen (Acetaminophen Tab 500 Mg Tab) 1,000 mg PO Q6HR PRN PRN Reason: Fever>101 Last Admin: 10/15/20 17:36 Dose: 1,000 mg Documented by: Albuterol Sulfate (Albuterol Hfa Inhaler) 2 puff INHALATION RT-Q6H PRN PRN Reason: Shortness Of Breath Or Wheezing Last Admin: 10/16/20 07:49 Dose: 2 puff Documented by: Ascorbic Acid (Ascorbic Acid 500 Mg Tab) 1,000 mg PO DAILY [facility] Last Admin: 10/16/20 08:35 Dose: 1,000 mg Documented by: Cholecalciferol (Cholecalciferol 400 Unit Tab) 400 unit PO DAILY [facility] Last Admin: 10/16/20 08:35 Dose: 400 unit Documented by: Cholecalciferol (Cholecalciferol 1,000 Unit Tab) 1,000 unit PO DAILY [facility] Last Admin: 10/16/20 08:35 Dose: 1,000 unit Documented by: Dexamethasone (Dexamethasone 2 Mg Tab) 6 mg PO DAILY [facility] Stop: 10/23/20 09:01 Last Admin: 10/16/20 08:35 Dose: 6 mg Documented by: Flecainide Acetate (Flecainide 50 Mg Tab) 50 mg PO Q12HR [facility] Last Admin: 10/16/20 22:24 Dose: 50 mg Documented by: Isosorbide Mononitrate (Isosorbide Mononitrate Er 30 Mg Tab.Er.24h) 30 mg PO DAILY [facility] Last Admin: 10/16/20 08:35 Dose: 30 mg Documented by: Levothyroxine Sodium (Levothyroxine 100 Mcg Tab) 100 mcg PO DAILY@0600 [facility] Last Admin: 10/16/20 05:57 Dose: 100 mcg Documented by: Losartan Potassium (Losartan 50 Mg Tab) 50 mg PO DAILY [facility] Last Admin: 10/16/20 08:35 Dose: 50 mg Documented by: Magnesium Oxide (Magnesium Oxide 400 Mg Tab) 400 mg PO DAILY [facility] Last Admin: 10/16/20 08:36 Dose: 400 mg Documented by: Metoprolol Tartrate (Metoprolol Tartrate 25 Mg Tab) 25 mg PO DAILY [facility] Last Admin: 10/16/20 08:36 Dose: 25 mg Documented by: Multivitamins (Multivitamins, Thera 1 Each Tab) 1 each PO DAILY [facility] Last Admin: 10/16/20 08:36 Dose: 1 each Documented by: Ondansetron HCl (Ondansetron 4 Mg/2 Ml Vial) 4 mg IVP Q6HR PRN PRN Reason: Nausea And Vomiting Zinc Sulfate (Zinc Sulfate 220 Mg Cap) 220 mg PO DAILY [facility] Last Admin: 10/16/20 08:36 Dose: 220 mg Documented by: Physical examination: VITAL SIGNS: 98.5, 70, 22, 1 25 x 65, 95% on 3 L GENERAL: Sitting up, tired PSYCH: Alert and oriented x3; mood and affect normal Rest of the exam as per nursing and pulmonary INVESTIGATIONS, reviewed in the clinical context: October 16: INR 3 CRP 10.9 October 15: INR 7.47 October 14: INR 5.8 d-dimer 0.31 CRP 10.7 White count 6.4 hemoglobin 14.5 platelets 249 INR 3 potassium 3.9 creatinine 0.93 Potassium 3.9 creatinine 0.93 Ferritin 712 CRP 249.7 protocol calcitonin 0.26 Coronavirus PCF-detected EKG tracing personally record by me-sinus rhythm nonspecific T-wave changes Chest x-ray film personally reviewed by me-scattered bilateral infiltrates Assessment: -Acute bilateral COVID 19 pneumonia with symptoms starting about a week ago I improving -Relative hypoxia secondary to above-on 3 L nasal cannula -Paroxysmal atrial fibrillation currently in sinus rhythm chronically on Coumadin -Coumadin monitoring with toxicity. No bleeding. -Essential hypertension -Hypothyroid -Psoriatic arthritis Plan: Continue with Remdesivir, dexamethasone, follow INR. Discussed with the patient. Hopefully home tomorrow.
[2020-10-17] MEDS: LEVOTHYROXINE 100 MCG TAB PO SCH (05:51)
[2020-10-17] MEDS: ASCORBIC ACID 500 MG TAB PO SCH (07:53)
[2020-10-17] MEDS: CHOLECALCIFEROL 1,000 UNIT TAB PO SCH (07:54)
[2020-10-17] MEDS: MULTIVITAMINS, THERA 1 EACH TAB PO SCH (07:54)
[2020-10-17] MEDS: FLECAINIDE 50 MG TAB PO SCH (07:54)
[2020-10-17] MEDS: ISOSORBIDE MONONITRATE ER 30 MG TAB.ER.24H PO SCH (07:54)
[2020-10-17] MEDS: dexAMETHasone 2 MG TAB PO SCH (07:54)
[2020-10-17] MEDS: ZINC SULFATE 220 MG CAP PO SCH (07:54)
[2020-10-17] MEDS: LOSARTAN 50 MG TAB PO SCH (07:54)
[2020-10-17] MEDS: CHOLECALCIFEROL 400 UNIT TAB PO SCH (07:54)
[2020-10-17] MEDS: METOPROLOL TARTRATE 25 MG TAB PO SCH (07:54)
[2020-10-17] MEDS: MAGNESIUM OXIDE 400 MG TAB PO SCH (07:55)
[2020-10-17 10:58] VITALS: RESP 17
--- NOTE | 2020-10-17 11:43 | P.PN ---
Subjective Progress Note Date: 10/17/20 79-year-old female patient presented to the emergency room because of generalized weakness and fatigue and tiredness and along with some shortness of breath and cough. Her symptoms started approximately a week ago. Physically last Monday. She became symptomatic. She felt weak. During the course of her treatment, she lost her taste and smell. No significant sputum production. She was having some body aches and no documented temperature. She came into the hospital and the patient was found to be hypoxic with pulse ox of 85%. She was placed on oxygen at 3 L of Ringer's saturation above 95%. Currently she is in atrial fibrillation. PT/INR is therapeutic.The d-dimer is at 0.5. INR is at 3. Renal function stable. LFTs are within normal limits. The LDH is 1218, CRP is 49 and lactic acid was at 1.4. The patient was started on Decadron. On patient seen in follow-up in the emergency department, patient still awaiting a bed to become available on medical surgical floor, over last 24 hours her vitals have been stable, she denies any worsening dyspnea, still has the dry cough, no chest discomfort, she is on 3 L of oxygen pulse ox is 93%, minimal crackles at bilateral bases, no rhonchi, no wheezing, no fever or chills, patient was started on Remdesivir treatment yesterday, today is her day 2 of treatment, she continues on oral Decadron, and she is on Coumadin for anticoagulation, today's INR is 3.0, her d-dimer was low at 0.50, pro-calcitonin was relatively low as 0.26, no new labs, or chest x-rays, we'll obtain follow-up chest x-ray tomorrow. Evaluation of 10/14/2020, the patient is feeling slightly better. The fatigue has been improving. No significant cough or sputum production. She is on 3 L of oxygen by nasal cannula. No nausea. No vomiting. No diarrhea. No chest pain. No altered mentation. Her Coumadin level is slightly elevated and the patient' s Coumadin will placed on hold. Her cardiac rhythm is atrial fibrillation and she takes anticoagulation for chronic A. fib. She did have a bout of nosebleed earlier today which recovered. on 10/15/2020, the patient felt slightly more short of breath. She was also nauseated and she threw up once. She was given Zofran. Her oxygen flow was brought up to 5 L. No diarrhea. No chest pain. No altered mentation. Coumadin level was toxic at 7 and the patient was given 2.5 mg of Coumadin orally. She remains nature fibrillation. No bleeding complications. She remains on a combination of Decadron and Remdesivir On 10/16/2020, the patient is feeling well. No specific complaints. She is c ompleting Decadron. She is also completing Remdesivir and the patient is on day #5 of treatment. Her nausea has subsided. She is still having some loose diarrhea. She was given vitamin K regarding her coagulopathy and her INR is down to 3.0. She is still on oxygen and she is down to 3 L about 2 by nasal cannula. No chest pain. No altered mentation. She has chronic atrial fibrillation. In terms of her inflammatory markers, her CRP level still elevated at 10.9. On 10/17/2020, the patient is down to 1.5 L of oxygen by nasal cannula. She is on Decadron. She completed Remdesivir. No GI symptoms. No nausea. No vomiting. No diarrhea. She is able to walk around in her room without having any major respiratory difficulties. I'm going to check her pulse ox on room air. She remains in atrial fibrillation. Follow-up PT/INR still pending for now. She received vitamin K yesterday and INR was down to 3.0. She has no specific complaints. Objective - Vital Signs Vital signs: Vital Signs Temp 97.5 F L 10/17/20 09:21 Pulse 76 10/17/20 09:21 Resp 17 10/17/20 09:21 BP 131/79 10/17/20 09:21 Pulse Ox 93 L 10/17/20 09:21 Intake & Output 10/16/20 10/17/20 10/17/20 18:59 06:59 18:59 Other: Voiding Method Toilet Toilet # Voids 4 1 - Exam GENERAL EXAM: Alert, very pleasant, 79-year-old white female, 3 L of oxygen pulse ox of 93%, comfortable in no apparent distress. HEAD: Normocephalic/atraumatic. EYES: Normal reaction of pupils, equal size. Conjunctiva pink, sclera white. NOSE: Clear with pink turbinates. THROAT: No erythema or exudates. NECK: No masses, no JVD, no thyroid enlargement, no adenopathy. CHEST: No chest wall deformity. Symmetrical expansion. LUNGS: Equal air entry with basilar crackles but no wheeze, rhonchi or dullness. CVS: Regular rate and rhythm, normal S1 and S2, no gallops, no murmurs, no rubs ABDOMEN: Soft, nontender. No hepatosplenomegaly, normal bowel sounds, no guarding or rigidity. EXTREMITIES: No clubbing, no edema, no cyanosis, 2+ pulses and upper and lower extremities. MUSCULOSKELETAL: Muscle strength and tone normal. SPINE: No scoliosis or deformity SKIN: No rashes CENTRAL NERVOUS SYSTEM: Alert and oriented -3. No focal deficits, tone is normal in all 4 extremities. PSYCHIATRIC: Alert and oriented -3. Appropriate affect. 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 She is improving and we have been down titrating her FiO2 down. She is completed her treatment with Remdesivir. Noted the patient was having significant GI side symptoms and those subsided for now. 2 acute hypoxic respiratory failure secondary to above currently on 1.5 L of oxygen by nasal cannula 3 Generalized weakness in addition to constitutional symptoms of worsening shortness of breath or related to above 4 elevated inflammatory markers with a low d-dimer secondary to above 5 chronic atrial fibrillation and anticoagulation with warfarin with a supratherapeutic PT/INR, the patient received vitamin K and INR is down to 3.0. Coumadin still on hold. plan Completed Remdesivir, and the patient will be kept on Decadron, oxygen therapy, vitamin C, vitamin D, melatonin, zinc and Pepcid. The vitamin K was given yesterday the patient's INR is down to 3 and we'll keep the Coumadin on hold. Awaiting repeat INR today Zofran for nausea we'll continue to follow, her overall condition is better and the patient seems to be improving for now. The patient is down to 1-1/2 L of oxygen by nasal cannula. On room air oxygen her pulse ox dropped down to 86%. I think it's reasonable to discharge this patient home along with home O2 and a portable concentrator to be followed up on outpatient basis. I'm worried to discuss this with the primary care team. Should be considered for discharge with oxygen therapy. She will also completed total of 10 day course of Decadron.
[2020-10-17] MEDS: ALBUTEROL HFA INHALER INHALATION PRN (11:45)
[2020-10-17 13:56] LABS: INR 2.58 (0.90-1.11)
[2020-10-17 14:44] VITALS: BP 120/72; PULSE 75; TEMP 97.8
--- NOTE | 2020-10-17 21:32 | P.DS ---
Providers Date of admission: 10/12/20 14:19 Expected date of discharge: 10/17/20 Attending physician: Du Painter Consults: 10/12/20 14:07 Consult Physician Urgent Consulting Provider: Monique Mazariegos Consult Reason/Comments: COVID, hypoxia Do you want consulting provider notified?: Yes Primary care physician: Kelsey Vaca [facility] Course: Chief Complaint: Short of breath History of presenting complaint: This is a pleasant 79 year patient of . Chronic stable medical conditions include atrial fibrillation, hypertension, hypothyroid, psoriatic arthritis. About a [facility] was patient started having respiratory symptoms including shortness of breath cough. Bodyaches for by nausea and diarrhea some chills feeling warm. Decreased appetite. She lost her taste and smell. Along the course she did get tested for COVID not sure about the results. She did test positive for COVID here Feeling a bit better since coming in. Admitted with bilateral COVID pneumonia, acute hypoxic respiratory failure. Started on dexamethasone, Remdesivir,. Patient gradually improved. Today-Doing well and on 1.5 L of oxygen. Ambulating. Eating well. Feeling well. Discussed with the patient. Home oxygen being arranged. Cleared by pulmonary. Discussion and discharge planning more than 35 minutes Associate Research Scientist: Dr. Mazariegos from pulmonary Physical examination: VITAL SIGNS: 97.5, 76, 17, 131 x 79, 93% on room air GENERAL: Sitting up, tired PSYCH: Alert and oriented x3; mood and affect normal Rest of the exam as per nursing and pulmonary INVESTIGATIONS, reviewed in the clinical context: October 17: INR 2.58 CRP 7 October 16: INR 3 CRP 10.9 October 15: INR 7.47 October 14: INR 5.8 d-dimer 0.31 CRP 10.7 White count 6.4 hemoglobin 14.5 platelets 249 INR 3 potassium 3.9 creatinine 0.93 Potassium 3.9 creatinine 0.93 Ferritin 712 CRP 249.7 protocol calcitonin 0.26 Coronavirus PCF-detected EKG tracing personally record by me-sinus rhythm nonspecific T-wave changes Chest x-ray film personally reviewed by me-scattered bilateral infiltrates Assessment: -Acute bilateral COVID 19 pneumonia with symptoms starting about a week prior to presenting. -Relative hypoxia secondary to above-on 1.5 L nasal cannula -Paroxysmal atrial fibrillation currently in sinus rhythm chronically on Coumadin -Coumadin monitoring with toxicity. No bleeding. -Essential hypertension -Hypothyroid -Psoriatic arthritis Disposition: Home Patient Condition at Discharge: Stable Plan - Discharge Summary Discharge Rx Participant: No New Discharge Prescriptions: New dexAMETHasone [Hexadrol] 6 mg PO DAILY #15 tab Albuterol Inhaler [Ventolin Hfa Inhaler] 2 puff INHALATION RT-Q6H PRN #1 puff PRN Reason: Shortness Of Breath Or Wheezing Ascorbic Acid [Vitamin C] 500 mg PO DAILY #30 tab Continue Levothyroxine Sodium [Synthroid] 100 mcg PO DAILY Flecainide [Tambocor] 50 mg PO Q12H Isosorbide Mononitrate ER [Imdur] 30 mg PO DAILY Multivitamins, Thera [Multivitamin (formulary)] 1 tab PO DAILY Cholecalciferol [Vitamin D3 (25 Mcg = 1000 Iu)] 1,000 unit PO DAILY Zinc 50 mg PO DAILY Metoprolol Tartrate [Lopressor] 25 mg PO DAILY Magnesium 200 mg PO DAILY Changed Warfarin [Coumadin] 2.5 mg PO DAILY #0 Losartan [Cozaar] 50 mg PO HS #0 Discontinued Warfarin [Coumadin] 5 mg PO [facility] Discharge Medication List Levothyroxine Sodium [Synthroid] 100 mcg PO DAILY 06/12/14 [History] Flecainide [Tambocor] 50 mg PO Q12H 07/12/14 [History] Isosorbide Mononitrate ER [Imdur] 30 mg PO DAILY 01/09/19 [History] Cholecalciferol [Vitamin D3 (25 Mcg = 1000 Iu)] 1,000 unit PO DAILY 10/12/20 [History] Magnesium 200 mg PO DAILY 10/12/20 [History] Metoprolol Tartrate [Lopressor] 25 mg PO DAILY 10/12/20 [History] Multivitamins, Thera [Multivitamin (formulary)] 1 tab PO DAILY 10/12/20 [History] Zinc 50 mg PO DAILY 10/12/20 [History] Albuterol Inhaler [Ventolin Hfa Inhaler] 2 puff INHALATION RT-Q6H PRN #1 puff 10/17/20 [Rx] Ascorbic Acid [Vitamin C] 500 mg PO DAILY #30 tab 10/17/20 [Rx] Losartan [Cozaar] 50 mg PO HS #0 10/17/20 [Rx] Warfarin [Coumadin] 2.5 mg PO DAILY #0 10/17/20 [Rx] dexAMETHasone [Hexadrol] 6 mg PO DAILY #15 tab 10/17/20 [Rx] Follow up Appointment(s)/Referral(s): [facility] [NON-STAFF] - As Needed (This is the supplier of your home oxygen. Call [phone] when you arrive home to have your concentrator delievered. ) Kelsey Vaca DO [Primary Care Provider] - 3 Days Monique Mazariegos MD [STAFF PHYSICIAN] - 1 Week Activity/Diet/Wound Care/Special Instructions: inr- 3 days Discharge Disposition: HOME SELF-CARE
[2020-10-18] MEDS ORDERED: WARFARIN 2.5 MG TAB PO SCH (18:00)
== END 2020-10-17 16:00 | disposition home or self-care (01) | DRG 177 ==
LOC: EC 10:42 → 6NMEDSUR 14:19 → 4SSUR 10-13 15:29
PROVIDERS: ADMIT Hospitalist; ATTEND Hospitalist
PROC: XW033E5 Introduction of Remdesivir Anti-infective into Peripheral Vein, Percutaneous Approach, New Technology Group 5 (ICD-10-PCS; principal; 2020-10-12)
DX: U07.1 COVID-19 (principal); J12.89 Other viral pneumonia; J96.01 Acute respiratory failure with hypoxia; L40.50 Arthropathic psoriasis, unspecified; I48.0 Paroxysmal atrial fibrillation; E03.9 Hypothyroidism, unspecified; I10 Essential (primary) hypertension; R04.0 Epistaxis; R19.7 Diarrhea, unspecified; R79.1 Abnormal coagulation profile; Z79.01 Long term (current) use of anticoagulants; Z79.890 Hormone replacement therapy; Z79.899 Other long term (current) drug therapy; Z87.891 Personal history of nicotine dependence; Z90.49 Acquired absence of other specified parts of digestive tract; Z90.89 Acquired absence of other organs; Z82.3 Family history of stroke; Z82.49 Family history of ischemic heart disease and other diseases of the circulatory system; Z84.0 Family history of diseases of the skin and subcutaneous tissue; Z87.19 Personal history of other diseases of the digestive system; Z87.898 Personal history of other specified conditions
CPT/HCPCS: 36415; 71045; 71046; 80053; 82728; 83605; 83615; 83735; 84145; 85025; 85379; 85610; 85730; 86140; 87635; 93005; 94640; 96361; 96365; 96375; 99285

== ENCOUNTER 2022-04-15 10:52 | Day surgery (SDC) | payer BC, MEDICARE ==
[2022-04-14 10:15] VITALS: BMI 27.3
[~2022-04-15 10:52] MED LIST: LACTATED RINGERS 1,000 ML IV SCH; LIDOCAINE 1% (10MG/ML) FOR IV START INTRADERMA PRN
[2022-04-15 12:46] VITALS: TEMP 97.3
[2022-04-15] MEDS ORDERED: PROPOFOL 10 MG/ML 20 ML VIAL IV ONE (13:15)
[2022-04-15] MEDS ORDERED: LIDOCAINE 2% INJ 20 MG/ML (2 ML VIAL) ONE (13:15)
--- NOTE | 2022-04-15 13:41 | P.PCN ---
Date of Procedure: 04/15/22 Procedure(s) Performed: BRIEF HISTORY: Patient is a 81-year-old pleasant white female scheduled for an elective colonoscopy as a part of evaluation of prior history of colon polyps. Last endoscopy was 6 years ago. PROCEDURE PERFORMED: Colonoscopy. PREOPERATIVE DIAGNOSIS: History of colon polyps. IV sedation per Anesthesia. PROCEDURE: After informed consent was obtained, the patient, was brought into the endoscopy unit. IV sedation was administered by Anesthesia under continuous monitoring. Digital rectal examination was normal. Initially the Olympus CF-160 flexible video colonoscope was then inserted in the rectum, gradually advanced into the cecum without any difficulty. Careful examination was performed as the scope was gradually being withdrawn. Ileocecal valve and the appendiceal orifice were visualized and appeared normal. Prep was excellent. Mucosa of the cecum, ascending colon, transverse colon, descending colon, sigmoid colon, and rectum appeared normal. Retroflexion was performed in the rectum and no lesions were seen. Diffuse diverticulosis noted throughout the entire colon. The patient tolerated the procedure well. IMPRESSION: Normal-appearing colon from rectum to cecum with no evidence of colorectal neoplasia. Diffuse diverticulosis throughout the entire colon RECOMMENDATIONS: Findings of this examination were discussed with the patient as well as a family. She was advised to use [id number] Imodium as needed for the diarrhea. Follow up in office as needed..
[2022-04-15 14:02] VITALS: BP 152/76; PULSE 62; RESP 20
== END 2022-04-15 14:27 | disposition home or self-care (01) ==
LOC: ORWHC2ENDO 10:52
PROVIDERS: ATTEND Internal Medicine Gastroenterology
DX: Z12.11 Encounter for screening for malignant neoplasm of colon (principal); K57.30 Diverticulosis of large intestine without perforation or abscess without bleeding; Z86.010 Personal history of colon polyps; I48.91 Unspecified atrial fibrillation; I10 Essential (primary) hypertension; Z87.891 Personal history of nicotine dependence; E07.9 Disorder of thyroid, unspecified; L40.50 Arthropathic psoriasis, unspecified; Z79.01 Long term (current) use of anticoagulants; Z79.899 Other long term (current) drug therapy; Z79.890 Hormone replacement therapy
CPT/HCPCS: J2704; J2001; G0121; 45378

== ENCOUNTER → 2023-02-15 | Outpatient (CLI) | payer MEDICARE ==
--- NOTE | 2023-02-16 08:22 | MM ---
Reason for Exam: Screening (asymptomatic). Last mammogram was performed 3 year(s) and 3 month(s) ago. Patient History: Menarche at age 18. First Full-Term at age 21. Postmenopausal. Estrogen for 1 year from age 53 until age 54. 01/24/2019, Benign Core Biopsy on the right side. Maternal aunt had breast cancer, age 40. Risk Values: Jeana 5 year model risk: 1.3%. NCI Lifetime model risk: 2.0%. Prior Study Comparison: 11/21/2018 Bilateral Screening Mammogram, [facility]. 01/07/2019 Right Diagnostic Mammogram, [facility]. 11/13/2019 Bilateral Diagnostic Mammogram, [facility]. Tissue Density: The breast tissue is heterogeneously dense. This may lower the sensitivity of mammography. Findings: Analyzed By CAD. New cluster of microcalcifications upper outer left breast zone B require further evaluation with spot magnification compression views. No additional suspicious calcifications seen. No mass or distortion. Overall Assessment: Incomplete: need additional imaging evaluation, BI-RAD 0 Management: Diagnostic Mammogram of the left breast. A clinical breast exam by your physician is recommended on an annual basis and results should be correlated with mammographic findings. Electronically signed and approved by: Bulmaro Haley M.D. Radiologis
== END | disposition home or self-care (01) ==
LOC: RADMAMWWP 11:20
PROVIDERS: ATTEND Family Medicine
DX: Z12.31 Encounter for screening mammogram for malignant neoplasm of breast (principal); Z78.0 Asymptomatic menopausal state; Z80.3 Family history of malignant neoplasm of breast; Z98.890 Other specified postprocedural states
CPT/HCPCS: 77063; 77067

== ENCOUNTER → 2023-02-21 | Outpatient (CLI) | payer MEDICARE ==
--- NOTE | 2023-02-21 10:02 | MM ---
Reason for Exam: Additional evaluation requested from abnormal screening. Last screening mammogram was performed less than 1 month ago. Patient History: Menarche at age 18. First Full-Term at age 21. Postmenopausal. Estrogen for 1 year from age 53 until age 54. 01/24/2019, Benign Core Biopsy on the right side. Maternal aunt had breast cancer, age 40. Risk Values: Jeana 5 year model risk: 1.3%. NCI Lifetime model risk: 2.0%. Prior Study Comparison: 01/07/2019 Right Diagnostic Mammogram, [facility]. 11/13/2019 Bilateral Diagnostic Mammogram, [facility]. 02/15/2023 Bilateral MG 3D screening mammo w/cad, [facility]. Tissue Density: Left: The breast tissue is heterogeneously dense. This may lower the sensitivity of mammography. Findings: Analyzed By CAD. Stable grouped benign-appearing tiny punctate calcification in the left breast middle and inferior slightly outer aspect over 6 mm distribution from older studies including 2019 exam on additional views provided. No new suspicious group of microcalcifications. Overall Assessment: Benign, BI-RAD 2 Management: Screening Mammogram of both breasts in 1 year. A clinical breast exam by your physician is recommended on an annual basis and results should be correlated with mammographic findings. This exam should not preclude additional follow-up of suspicious palpable abnormalities. Results were given to the patient verbally at the time of exam. Electronically signed and approved by: Ace Wing M.D.
== END | disposition home or self-care (01) ==
LOC: RADMAMWWP 09:28
PROVIDERS: ATTEND Family Medicine
DX: R92.8 Other abnormal and inconclusive findings on diagnostic imaging of breast (principal); Z78.0 Asymptomatic menopausal state; Z80.3 Family history of malignant neoplasm of breast; Z98.890 Other specified postprocedural states
CPT/HCPCS: 77065; G0279; 77061

== ENCOUNTER → 2024-04-04 | Outpatient (CLI) | payer MEDICARE ==
[2024-04-04 16:00] LABS: ALT 16 U/L (8-44); AST 21 U/L (13-35); Albumin 4.2 g/dL (3.8-4.9); Albumin/Globulin Ratio 1.75 Ratio (1.60-3.17); Alkaline Phosphatase 85 U/L (41-126); BUN/Creat Ratio 14.11 Ratio (12.00-20.00); Blood Urea Nitrogen 12.7 mg/dL (9.0-27.0); Calcium 9.1 mg/dL (8.7-10.3); Chloride 104 mmol/L (96-109); Globulin 2.4 g/dL (1.6-3.3); Glucose 102 mg/dL (70-110); Potassium 4.5 mmol/L (3.5-5.5); Sodium 138 mmol/L (135-145); T4, Free (Free Thyroxine) 1.39 ng/dL (0.80-1.80); Total Bilirubin 0.5 mg/dL (0.3-1.2); Total Protein 6.6 g/dL (6.2-8.2)
[2024-04-04 16:01] LABS: HCT 40.6 % (37.2-46.3); HGB 12.9 g/dL (12.0-15.0); MCH 28.6 pg (27.0-32.0); MCHC 31.8 g/dL (32.0-37.0); Mean Platelet Volume 10.3 FL (9.5-12.2); NRBC Per 100 WBC 0 X 10*3/uL (0.00-0.01); Platelet Count 355 X 10*3/uL (140-440); RBC 4.51 X 10*6/uL (4.10-5.20); WBC 7.81 X 10*3/uL (4.50-10.00)
[2024-04-04 16:02] LABS: Basophils # (A) 0.05 X 10*3/uL (0.00-0.10); Basophils % (A) 0.6 %; Eosinophils # (A) 0.25 X 10*3/uL (0.04-0.35); Eosinophils % (A) 3.2 %; Lymphocytes # (A) 2.75 X 10*3/uL (0.90-5.00); Lymphocytes % (A) 35.2 %; Monocytes # (A) 1.04 X 10*3/uL (0.20-1.00); Monocytes % (A) 13.3 %; Neutrophils % (A) 47.4 %
[2024-04-04 16:22] LABS: Chol/HDL Ratio 3.91 Ratio; LDL Cholesterol,Calculated 122.7 mg/dL (0.0-131.0)
== END | disposition home or self-care (01) ==
LOC: LABWHC1 08:47
PROVIDERS: ATTEND Family Medicine
DX: I10 Essential (primary) hypertension (principal); E03.9 Hypothyroidism, unspecified; E78.5 Hyperlipidemia, unspecified
CPT/HCPCS: 36415; 80053; 80061; 84439; 84443; 85025